=== PATIENT | male | born 1960 | race Caucasian/White ===

== ENCOUNTER 2016-10-11 09:12 | Inpatient (IN) ==
[2016-10-11] MEDS ORDERED: *HR* HYDROmorphone (PF) 1 MG/ML SYRINGE IVP ONE ×2 (09:39→11:42)
[2016-10-11] MEDS ORDERED: Ondansetron 4 MG/2 ML VIAL IVP ONE ×2 (09:39→11:42)
--- NOTE | 2016-10-11 10:03 | Emergency Department Note ---
Disposition Clinical Impression: Anemia Qualifiers: Anemia type: other cause Qualified Code(s): D64.89 - Disposition: Admitted As Inpatient Condition: Fair Time of Disposition: 13:40 Abdominal Pain HPI - General Chief Complaint: ED Abdominal Pain Stated Complaint: ABD pain Time Seen by Provider: 10/11/16 09:23 Source: patient - History of Present Illness HPI Narrative: Patient stumbled and pulled on his PEG tube one half weeks ago. It protruded about 3 cm but did not get removed. He states since then he has noticed some oozing around the insertion area whenever he strains to have a bowel movement. He states for the past 3 days the pain is gotten more significant knee has not been able to have bowel movement. He has tried Borrego milk glycerin suppositories in 2 months. Pain Scale: 8 - Related Data Home Medications Medication Instructions Recorded Confirmed Albuterol Sulfate [Albuterol 2 puff IH Q4HR PRN 05/11/15 10/11/16 Inhaler] Aspirin 81 mg PO DAILY 05/11/15 10/11/16 Atorvastatin Calcium [Lipitor] 20 mg PO HS 05/11/15 10/11/16 Carvedilol [Coreg] 25 mg PO BID 05/11/15 10/11/16 Insulin Glargine,Hum.rec.anlog 10 unit SQ HS 05/11/15 10/11/16 [Lantus Solostar] Insulin LISPRO [HumaLOG] 5 units SQ TIDWM PRN 12/04/15 10/11/16 Bumetanide 2 mg PO DAILY 09/14/16 10/11/16 Cholecalciferol (Vitamin D3) 1,000 unit PO DAILY 10/11/16 10/11/16 [Vitamin D] Docusate Sodium [Dok] 100 mg PO BID 10/11/16 10/11/16 LORazepam [Ativan] 1 mg PO TID PRN 10/11/16 10/11/16 Loratadine [Allergy Relief] 10 mg PO DAILY 10/11/16 10/11/16 Magnesium Hydroxide [Milk of 15 ml PO Q48H 10/11/16 10/11/16 Magnesia] Ondansetron HCl [Zofran] 4 mg PO Q6H 10/11/16 10/11/16 Oxycodone HCl 5 mg PO Q8H PRN 10/11/16 10/11/16 Spironolactone [Aldactone] 50 tab PO BID 10/11/16 10/11/16 Sucralfate [Carafate] 1 gm PO BID 10/11/16 10/11/16 Previous Rx's Medication Instructions Recorded Nicotine Patch [Nicoderm] 14 mg TD DAILY patch.td24 09/22/15 Prochlorperazine Maleate 1 tab PO Q6HR #90 tablet 09/17/16 [Compazine] Allergies Allergy/AdvReac Type Severity Reaction Status Date / Time Sulfa (Sulfonamide Allergy Hives Verified 10/11/16 14:04 Antibiotics) IVP DYE Allergy See Uncoded 10/11/16 14:04 Comments Review of Systems: Patient denies any fevers or chills. He denies any periods of syncope. He denies any blurry vision or headaches. He reports that he is slightly short of breath. He denies any chest pain. He reports abdominal pain worse on the left side. He reports a three-day history of constipation. He reports normal bowel movements up until then. He also reports increasing around his PEG tube whenever he strains to have a bowel movement. He denies any urinary symptoms. He reports that his legs are more edematous than normal. All systems ED: reviewed and negative except as stated. Abdominal Pain PMH - Past Medical History Medical history: Reports: atrial fibrillation, cancer, cardiomyopathy, CHF, COPD , diabetes, hyperlipidemia, hypertension, malignancy, renal disease Male Surgical History: Reports: other Psychiatric history: Reports: depression - Social History Smoking status: Current every day smoker Alcohol use: Reports: none Drug use: Reports: none Physical Exam - General Limitations: no limitations General appearance: alert, in no apparent distress - Head Head exam: atraumatic, normocephalic, normal inspection - Eye Eye exam: Present: normal appearance, PERRL, EOMI. Absent: scleral icterus - ENT ENT exam: normal exam, normal oropharynx, mucous membranes moist - Neck Neck exam: Present: normal inspection, full ROM, trachea midline. Absent: tenderness, meningismus, lymphadenopathy - Chest Chest inspection: Present: normal inspection, symmetric chest wall rise. Absent : tenderness, rash - Respiratory Respiratory exam: Present: normal lung sounds bilaterally. Absent: respiratory distress - Cardiovascular Cardiovascular exam: Present: regular rate, normal rhythm, normal heart sounds - Abdominal Exam Abdominal exam: Present: soft, tenderness (Left upper and lower quadrants on palpation.), guarding (Left upper quadrant), normal bowel sounds, other (PEG tube appears well-healed. There is mild erythema.). Absent: distention, rebound, rigidity - Extremities Exam Extremities exam: Present: normal inspection, full ROM, normal capillary refill , pedal edema (Pitting edema to knees.). Absent: tenderness - Back Exam Back exam: Present: normal inspection, full ROM. Absent: tenderness, CVA tenderness (R), CVA tenderness (L) - Neurological Exam Neurological exam: Present: alert, oriented X3. Absent: CN II-XII intact - Psychiatric Psychiatric exam: Present: normal affect, normal mood - Skin Skin exam: Present: warm, dry, intact, normal color. Absent: rash, cyanosis Course Course Narrative: Male patient with a history of esophageal cancer who is still undergoing chemotherapy for this presents with a half week history of left upper quadrant abdominal pain. He states the pain got significantly worse over the past 3 days. He is also complaining of constipation for the past 3 days. He states a week and a half ago he stumbled and pulled on his PEG tube. He states he noticed it came out approximately 3 cm. He states ever since then he has noticed infusing at the PEG tube site whenever he tries to bear down to have a bowel movement. Patient also complaining of nausea. He states this is constant due to his chemotherapy. He states this is not a new problem. He complains that his left upper quadrant pain feels like "a cut on her finger that is healing." His abdomen is soft however he does grimace whenever you palpate the left upper quadrant. Patient denies any fevers. He states he has tried glycerin suppositories to enemas and Borrego' milk to attempt to have a bowel movement. He is chronically on lactulose. Patient's lower extremities have pitting edema to his knees. He states he has been sitting up in his chair for the past 3 nights due to his abdominal pain. This is caused his legs to swell more than normal. We will get a CT if patient's abdomen and treat his pain while he is here. - Reevaluation(s) Reevaluation #1: Discussed patient's PEG tube with surgery. They state they will replace it for him. Time: 13:41 - Consultations Consultation #1: Spoke with Dr. Lynne. He states to place a consult and he will come see the patient to replace the PEG tube. Time: 13:34 Consultation #2: Spoke with Oncology. They are requesting the Pt be admitted for a blood transfusion. Time: 12:00 Vital Signs Temperature 98.6 F 10/11/16 09:17 Pulse Rate 89 10/11/16 09:17 Respiratory Rate 18 10/11/16 09:17 Blood Pressure 154/81 10/11/16 09:17 O2 Sat by Pulse Oximetry 97 10/11/16 09:17 Temperature 97.2 F L 10/12/16 07:27 Pulse Rate 75 10/12/16 07:27 Respiratory Rate 17 10/12/16 07:27 Blood Pressure 117/64 10/12/16 07:27 O2 Sat by Pulse Oximetry 98 10/12/16 07:27 Oxygen Delivery Oxygen Delivery Room Air Abdominal Pain - Medical Records Medical records reviewed: Yes I reviewed the patient's medical records. - Lab Data Lab results reviewed: Yes I reviewed the patient's lab results. Result diagrams: 10/12/16 03:50 10/12/16 03:50 Lab Results 10/11/16 10/11/16 10/11/16 Range/Units 10:05 10:05 10:05 WBC 6.2 (4.3-11.1) K/mcL RBC 2.11 L (4.19-5.50) M/mcL Hgb 6.2 L (12.9-16.9) g/dL Hct 19.9 L (37.5-50.1) % MCV 94.3 (83.0-100.0) fL MCH 29.4 (28.0-33.3) pg MCHC 31.2 L (31.6-35.5) g/dL RDW 19.4 H (11.5-14.5) % Plt Count 117 L (140-400) K/mcL MPV 10.7 (9.4-12.4) fL Immature Gran % 1.1 (0-4) % Seg Neutrophils % 85.3 % Lymphocytes % 3.2 % Monocytes % 10.4 % Eosinophils % 0.0 % Basophils % 0.0 % Neutrophils # 5.3 (1.6-8.9) K/mcL Lymphocytes # 0.2 L (0.6-4.6) K/mcL Monocytes # 0.7 (0.0-1.3) K/mcL Eosinophils # 0.0 (0.0-0.6) K/mcL Basophils # 0.0 (0.0-0.2) K/mcL Nucleated RBCs/100 WBC 0.5 H (0) /100 WBC Sodium 136 (136-145) mEq/L Potassium 5.0 H (3.5-4.5) mEq/L Chloride 107 (98-109) mEq/L Carbon Dioxide 17 L (19-29) mEq/L BUN 121 H (8-26) mg/dL Creatinine 4.83 H (0.72-1.25) mg/dL Est GFR ( Amer) 15 L (> 60) Est GFR (Non-Af Amer) 12 L (> 60) BUN/Creatinine Ratio 25 (6-26) Glucose 145 H (70-99) mg/dL Calculated Osmolality 323 H (280-300) Lactic Acid 2.1 (0.5-2.2) mmol/L Calcium 8.3 L (8.6-10.8) mg/dL Iron (65-175) mcg/dL % Saturation (20-55) % Transferrin (174-364) mg/dL Ferritin (22-275) ng/ml Total Bilirubin 1.2 (0.2-1.2) mg/dL Direct Bilirubin 0.6 H (0.0-0.5) mg/dL Indirect Bilirubin 0.6 (0.0-1.2) mg/dL AST 42 H (5-34) Units/L ALT 31 (0-55) Units/L Alkaline Phosphatase 281 H (38-126) Units/L Serum Total Protein 5.4 L (6.0-8.3) g/dL Albumin 2.4 L (3.5-5.0) g/dL Globulin 3.0 (2.4-3.5) g/dL Albumin/Globulin Ratio 0.8 L (1.1-2.2) Lipase 43 (8-78) Units/L 10/11/16 Range/Units 10:08 WBC (4.3-11.1) K/mcL RBC (4.19-5.50) M/mcL Hgb (12.9-16.9) g/dL Hct (37.5-50.1) % MCV (83.0-100.0) fL MCH (28.0-33.3) pg MCHC (31.6-35.5) g/dL RDW (11.5-14.5) % Plt Count (140-400) K/mcL MPV (9.4-12.4) fL Immature Gran % (0-4) % Seg Neutrophils % % Lymphocytes % % Monocytes % % Eosinophils % % Basophils % % Neutrophils # (1.6-8.9) K/mcL Lymphocytes # (0.6-4.6) K/mcL Monocytes # (0.0-1.3) K/mcL Eosinophils # (0.0-0.6) K/mcL Basophils # (0.0-0.2) K/mcL Nucleated RBCs/100 WBC (0) /100 WBC Sodium (136-145) mEq/L Potassium (3.5-4.5) mEq/L Chloride (98-109) mEq/L Carbon Dioxide (19-29) mEq/L BUN (8-26) mg/dL Creatinine (0.72-1.25) mg/dL Est GFR ( Amer) (> 60) Est GFR (Non-Af Amer) (> 60) BUN/Creatinine Ratio (6-26) Glucose (70-99) mg/dL Calculated Osmolality (280-300) Lactic Acid (0.5-2.2) mmol/L Calcium (8.6-10.8) mg/dL Iron 59 L (65-175) mcg/dL % Saturation 22 (20-55) % Transferrin 192 (174-364) mg/dL Ferritin 221 (22-275) ng/ml Total Bilirubin (0.2-1.2) mg/dL Direct Bilirubin (0.0-0.5) mg/dL Indirect Bilirubin (0.0-1.2) mg/dL AST (5-34) Units/L ALT (0-55) Units/L Alkaline Phosphatase (38-126) Units/L Serum Total Protein (6.0-8.3) g/dL Albumin (3.5-5.0) g/dL Globulin (2.4-3.5) g/dL Albumin/Globulin Ratio (1.1-2.2) Lipase (8-78) Units/L - Radiology Data Radiology results reviewed: Yes I reviewed the patient's radiology results. Attestation Statement - Attestation Attestation: I examined this patient and my medical decision-making was reviewed with the MEDICAL BILLING AND CODING SPECIALIST/PA/Advanced Practice Nurse/Resident Physician. I agree with the documented findings, disposition and treatment plan as described except to the extent set forth below. 13-year-old male presents ED because of abdominal pain functional constipation and generalized weakness and fatigue. Has history of esophageal cancer currently undergoing chemotherapy. He had recurrent issues of anemia and had transfusion 2 weeks ago. Yesterday he partially pulled out his PEG tube and has had pain in that location since that time. He is able to flush it okay but does have pain. He is also been constipated for the past several days but has increasing abdominal pain at the PEG site where he bears down bowel movement. Denies dysuria, hematuria or polyuria. Does complain of generalized fatigue. No chest pain or dyspnea. Morbid obese male in no apparent physiologic distress. He appears pale. Oropharynx is clear. Conjunctiva are pale. Chest clear to auscultation bilaterally. Rectal exam regular chest wall nontender. Abdomen with tenderness around the PEG tube site mild surrounding erythema. No palpable fluctuance. Bowel sounds are present throughout. Extremities warm and dry with bilateral trace edema. CT abdomen shows the balloon of the pigtail catheter to be in the abdominal wall musculature. Hemoglobin is 6.2. He is due to see his oncologist TODAY at 4:00PM and see if they can possibly do outpatient transfusion. We are going to replace PEG tube and confirm placement with Gastrografin; currently having difficulty getting the right size PEG tube. 12:15 Oncology has now opted to not do outpatient transfusion and reccomend admission 13:40 extract the existing PEG tube and were unable to get this out. Significant pain with the attempts. Dr. Lynne is consulted and will see the patient on the floor for changing of the PEG tube.
[2016-10-11 10:13] LABS: Hematocrit 19.9 % (37.5-50.1); Hemoglobin 6.2 g/dL (12.9-16.9); Immature Granulocytes % 1.1 % (0-4); Lymphocytes # 0.2 K/mcL (0.6-4.6); Lymphocytes % 3.2 %; Mean Corpuscular HGB Conc 31.2 g/dL (31.6-35.5); Mean Corpuscular Hemoglobin 29.4 pg (28.0-33.3); Mean Corpuscular Volume 94.3 fL (83.0-100.0); Mean Platelet Volume 10.7 fL (9.4-12.4); Monocytes # 0.7 K/mcL (0.0-1.3); Monocytes % 10.4 %; Neutrophils # 5.3 K/mcL (1.6-8.9); Nucleated Red Blood Cells 0.5 /100 WBC (0); Platelet Count 117 K/mcL (140-400); Red Blood Count 2.11 M/mcL (4.19-5.50); Red Cell Distribution Width 19.4 % (11.5-14.5); Segmented Neutrophils % 85.3 %
[2016-10-11 10:35] LABS: Albumin 2.4 g/dL (3.5-5.0); Albumin/Globulin Ratio 0.8 (1.1-2.2); Bilirubin,Direct 0.6 mg/dL (0.0-0.5); Bilirubin,Indirect 0.6 mg/dL (0.0-1.2); Bilirubin,Total 1.2 mg/dL (0.2-1.2); Calcium 8.3 mg/dL (8.6-10.8); Total Protein 5.4 g/dL (6.0-8.3)
[2016-10-11] MEDS ORDERED: Lidocaine Jelly 11 ml Syringe TP STA (12:47)
[2016-10-11] MEDS ORDERED: Lidocaine (Urojet) 5 ML JEL.PF.APP ONE (13:09)
[2016-10-11] MEDS ORDERED: Acetaminophen 325 MG TABLET PO PRN (14:33)
[2016-10-11] MEDS ORDERED: Naloxone 0.4 MG/ML INJ IVP PRN (14:33)
[2016-10-11] MEDS ORDERED: D5% in Water 1,000 ML IV PRN (14:55)
[2016-10-11] MEDS ORDERED: Dextrose Gel 15 GM PO PRN ×2 (14:55)
[2016-10-11] MEDS ORDERED: *HR* Dextrose 50 % in Water (Syg) 50 ML SYRINGE IVP PRN (14:55)
--- NOTE | 2016-10-11 15:04 | General Surgery Consult Note ---
Date of Encounter: 10/11/16 Time of Encounter: 14:25 Assessment and Plan (1) PEG (percutaneous endoscopic gastrostomy) status Current Visit: No Status: Acute The PEG tube was dislodged and in the subcutaneous tissue. I removed the PEG tube. The resulting wound will need to be packed once a day with iodoform. History of Present Illness Consult date: 10/11/16 Reason for consult: other (Abnormal CAT scan, dislodged gastrostomy) History of present illness: The patient fell several days ago and developed abdominal pain in the area of his percutaneous endoscopic gastrostomy tube. This was originally placed for treatment of esophageal cancer. He has not used to prevent nutrition for some time. The CAT scan of the abdomen was obtained. It was noted that the tip of the PEG tube was now in the skin. This did not appear to be gastric lumen. I personally reviewed CAT scan and agree with this finding. There also appeared to be inflammatory changes around the PEG tube in the subcutaneous tissue. I discussed these findings with the patient and recommended immediate removal of the PEG tube. I removed the PEG tube at the bedside. The remaining wound is packed with iodoform. Past Med Surg Social Fam HX - Past Medical History Medical history: atrial fibrillation, cancer, cardiomyopathy, CHF, COPD, diabetes, hyperlipidemia, hypertension, malignancy, renal disease Psychiatric history: depression - Past Surgical History Surgical History: orthopedic, other, other - Social History Smoking Status: Current every day smoker Smokeless Tobacco Status: No Alcohol use: none Drug use: none - Family History Father Adopted: No Living Status: Still Living Hx Family Cardiac Disorders: Yes Hx Family Respiratory Disorders: No Hx Family Cancer: Yes (Prostate) Hx Family GI Disorders: No Hx Family Endocrine Disorder: No Hx Family Neuromuscular Disorders: No Hx Family Neurologic Disorders: No Hx Family HEENT Disorders: No Hx Family Autoimmune Disorders: No Mother Adopted: No Family Member Ethnicity: Non- Living Status: Still Living Hx Family Cardiac Disorders: Yes (chf) Hx Family Respiratory Disorders: Yes (copd) Hx Family GI Disorders: Yes (IBS) Hx Family Endocrine Disorder: Yes Hx Family Neuromuscular Disorders: No Hx Family Neurologic Disorders: No Hx Family HEENT Disorders: No Hx Family Autoimmune Disorders: No Brother Hx Family Cardiac Disorders: Yes ([place] at age 49) Medications and Allergies Albuterol Sulfate [Albuterol Inhaler] 2 puff IH Q4HR PRN 05/11/15 [History] Aspirin 81 mg PO DAILY 05/11/15 [History] Atorvastatin Calcium [Lipitor] 20 mg PO HS 05/11/15 [History] Carvedilol [Coreg] 25 mg PO BID 05/11/15 [History] Insulin Glargine,Hum.rec.anlog [Lantus Solostar] 10 unit SQ HS 05/11/15 [History ] Nicotine Patch [Nicoderm] 14 mg TD DAILY patch.td24 09/22/15 [Rx] Insulin LISPRO [HumaLOG] 5 units SQ TIDWM PRN 12/04/15 [History] Bumetanide 2 mg PO DAILY 09/14/16 [History] Prochlorperazine Maleate [Compazine] 1 tab PO Q6HR #90 tablet 09/17/16 [Rx] Cholecalciferol (Vitamin D3) [Vitamin D] 1,000 unit PO DAILY 10/11/16 [History] Docusate Sodium [Dok] 100 mg PO BID 10/11/16 [History] LORazepam [Ativan] 1 mg PO TID PRN 10/11/16 [History] Loratadine [Allergy Relief] 10 mg PO DAILY 10/11/16 [History] Magnesium Hydroxide [Milk of Magnesia] 15 ml PO Q48H 10/11/16 [History] Ondansetron HCl [Zofran] 4 mg PO Q6H 10/11/16 [History] Oxycodone HCl 5 mg PO Q8H PRN 10/11/16 [History] Spironolactone [Aldactone] 50 tab PO BID 10/11/16 [History] Sucralfate [Carafate] 1 gm PO BID 10/11/16 [History] Allergies Sulfa (Sulfonamide Antibiotics) Allergy (Verified 10/11/16 14:04) Hives IVP DYE Allergy (Uncoded 10/11/16 14:04) See Comments Review of Systems All systems PM: reviewed and no additional remarkable complaints except as stated All systems PM: A 10-system review of systems was performed and is negative for pertinent findings except as documented above in the HPI. General Surgery Exam Initial Vital Signs Temp Pulse Resp BP Pulse Ox 98.6 F 89 18 154/81 97 10/11/16 09:17 10/11/16 09:17 10/11/16 09:17 10/11/16 09:17 10/11/16 09:17 - General physical appearance well developed, well nourished, no distress - Eyes PERRL, normal ocular movement - ENT normal pinna, normal nares, normal mucosa, no hearing loss, no congestion - Respiratory normal expansion, normal respiratory effort, clear to percussion, clear to auscultation - Cardiovascular Cardiovascular exam: Present: RRR, 15, 16 - Abdomen Abdomen general surgery: Present: soft (The PEG tube site has formed an abscess. This will need to be packed with iodoform.) - Neurologic Present: CN 2-12 grossly intact, normal coordination, normal sensation - Psychiatric Psychiatric general surgery: Present: appropriate, oriented to person, oriented to place, oriented to time, speech is normal, memory intact Exam Initial Vital Signs Temp Pulse Resp BP Pulse Ox 98.6 F 89 18 154/81 97 10/11/16 09:17 10/11/16 09:17 10/11/16 09:17 10/11/16 09:17 10/11/16 09:17 Results - Labs 10/11/16 10:05 10/11/16 10:05 Abnormal lab results RBC 2.11 M/mcL (4.19-5.50) L 10/11/16 10:05 Hgb 6.2 g/dL (12.9-16.9) L 10/11/16 10:05 Hct 19.9 % (37.5-50.1) L 10/11/16 10:05 MCHC 31.2 g/dL (31.6-35.5) L 10/11/16 10:05 RDW 19.4 % (11.5-14.5) H 10/11/16 10:05 Plt Count 117 K/mcL (140-400) L 10/11/16 10:05 Lymphocytes # 0.2 K/mcL (0.6-4.6) L 10/11/16 10:05 Nucleated RBCs/100 WBC 0.5 /100 WBC (0) H 10/11/16 10:05 Potassium 5.0 mEq/L (3.5-4.5) H 10/11/16 10:05 Carbon Dioxide 17 mEq/L (19-29) L 10/11/16 10:05 BUN 121 mg/dL (8-26) H 10/11/16 10:05 Creatinine 4.83 mg/dL (0.72-1.25) H 10/11/16 10:05 Est GFR ( Amer) 15 (> 60) L 10/11/16 10:05 Est GFR (Non-Af Amer) 12 (> 60) L 10/11/16 10:05 Glucose 145 mg/dL (70-99) H 10/11/16 10:05 Calculated Osmolality 323 (280-300) H 10/11/16 10:05 Calcium 8.3 mg/dL (8.6-10.8) L 10/11/16 10:05 Direct Bilirubin 0.6 mg/dL (0.0-0.5) H 10/11/16 10:05 AST 42 Units/L (5-34) H 10/11/16 10:05 Alkaline Phosphatase 281 Units/L (38-126) H 10/11/16 10:05 Serum Total Protein 5.4 g/dL (6.0-8.3) L 10/11/16 10:05 Albumin 2.4 g/dL (3.5-5.0) L 10/11/16 10:05 Albumin/Globulin Ratio 0.8 (1.1-2.2) L 10/11/16 10:05 All other labs normal. Consult Discharge Plan - Plan Referrals: Jeffy Guerra MD [Primary Care Provider] -
--- NOTE | 2016-10-11 15:45 | Internal Med History&Physical ---
Date of Encounter: 10/11/16 Time of Encounter: 15:00 Assessment and Plan (1) Acute on chronic kidney failure Current visit: No Status: Acute 1 patient has had increase in creatinine which is presently 4.83 which is up from 4.31. Appears his baseline between 2 and 3. We will continue to monitor creatinine 2 we will consult nephrology 3 avoid nephrotoxins-no NSAIDs 4 maintain MAP greater than 60 5 monitor intake and output 6 daily weights (2) Anemia Current visit: Yes Status: Chronic 1 this is chronic-present hemoglobin is 6.2 -patient with chemotherapy as CK D stage IV. Patient has been typed and crossed for 2 units of PRBCs 2 Will recheck H&H after transfusion 3 we will consult oncology concerning anemia (3) Atrial fibrillation Current visit: No Status: Chronic 1 presently in sinus rhythm he had cardioversion in 2013. We will continue with aspirin at this time patient was on Eliquis however was discontinued due to bleeding Qualifiers: Atrial fibrillation type: paroxysmal Qualified Code(s): I48.0 - Paroxysmal atrial fibrillation (4) CHF (congestive heart failure) Current visit: No Status: Chronic 1 exacerbation at this time. Last echo in 2014 recorded EF of 55 with severe diastolic dysfunction. We will continue with Coreg as well as spironolactone 2 we will monitor intake and output 3 daily weights 4 low-sodium diet Qualifiers: Congestive heart failure type: diastolic Congestive heart failure chronicity: chronic Qualified Code(s): I50.32 - Chronic diastolic (congestive ) heart failure (5) Diabetes mellitus Current visit: No Status: Chronic 1 last A1c in April was 6.1 we will continue with Accu-Cheks before meals and at bedtime. Continue with basal as well as prandial and corrective insulin goal to maintain postprandial less than 180 Qualifiers: Diabetes mellitus type: type 2 Diabetes mellitus complication status: with kidney complications Diabetes mellitus complication detail: with chronic kidney disease Diabetes mellitus watermelon inspector insulin use: with watermelon inspector use Chronic kidney disease stage: stage 4 (severe) Qualified Code(s): E11.22 - Type 2 diabetes mellitus with diabetic chronic kidney disease; N18.4 - Chronic kidney disease, stage 4 (severe); Z79.4 - nursing home (current) use of insulin Internal Medicine - H&P: HPI Chief complaint: Abd pain constipation Admitted From: Long-term Nursing Facility Plans for Post Hospital Care: Transfer Nursing Home Facility History of present illness: Mr. Carranza is a 56 year old male patient has extensive medical history which includes esophageal cancer PEG tube placement atrial fibrillation COPD on 2 L nasal cannula diabetes hypertension hyperlipidemia CHF JOSÉ MIGUEL is a cannula current smoker. According to the patient approximately a week ago he was attempting to get out of his chair when he accidentally pulled his PEG tube. Since then he has been experiencing some abdominal pain as well as constipation. The PEG tube is not used for tube feeding and he flushes it 4 times a day with water he still consumes food orally. He denies any fevers chills, chest pain however he does have some nausea and vomiting and poor appetite which mostly occur after chemotherapy, which his last treatment was yesterday. According to the patient he has required blood transfusions after chemotherapy with his most recent transfusion occurring approximately 2 weeks ago. He has been complaining of increased fatigue and general malaise and shortness of breath upon exertion requiring oxygen use. He presented to the ER with complaints of abdominal pain and constipation. Upon evaluation this to the patient's hemoglobin was 6.6 per ER records oncology was notified and requested patient be admitted for PRBC transfusion. He denies any melena, hematochezia hemataemesis. While in the ER an attemp was made to change the patient's PEG tube however this was not successful due to patient inability to to remove the tube as well as patient's inability to tolerate pain. Surgery was consulted for PEG tube replacement. Patient has been admitted for further workup and evaluation. At present time patient denies any pain, however continues to complain of constipation. Upon assessment is noted the skin surrounding PEG tube is red and excoriated. There is brown thin liquid draining from PEG tube. At present time patient appears to be hemodynamically stable. He will be typed and crossed for 2 units of PRBCs and transfused. He will be admitted for observation during transfusion. I reviewed case with Dr. Clemente who agrees with plan Past Med Surg Social Fam HX - Past Medical History Medical history: atrial fibrillation, cancer, cardiomyopathy, CHF, COPD, diabetes, hyperlipidemia, hypertension, malignancy, renal disease Psychiatric history: depression - Past Surgical History Surgical History: orthopedic, other, other - Social History Smoking Status: Current every day smoker Smokeless Tobacco Status: No Alcohol use: none Drug use: none - Family History Father Adopted: No Living Status: Still Living Hx Family Cardiac Disorders: Yes Hx Family Respiratory Disorders: No Hx Family Cancer: Yes (Prostate) Hx Family GI Disorders: No Hx Family Endocrine Disorder: No Hx Family Neuromuscular Disorders: No Hx Family Neurologic Disorders: No Hx Family HEENT Disorders: No Hx Family Autoimmune Disorders: No Mother Adopted: No Family Member Ethnicity: Non- Living Status: Still Living Hx Family Cardiac Disorders: Yes (chf) Hx Family Respiratory Disorders: Yes (copd) Hx Family GI Disorders: Yes (IBS) Hx Family Endocrine Disorder: Yes Hx Family Neuromuscular Disorders: No Hx Family Neurologic Disorders: No Hx Family HEENT Disorders: No Hx Family Autoimmune Disorders: No Brother Hx Family Cardiac Disorders: Yes ([place] at age 49) Internal Medicine - H&P: Meds Albuterol Sulfate [Albuterol Inhaler] 2 puff IH Q4HR PRN 05/11/15 [History] Aspirin 81 mg PO DAILY 05/11/15 [History] Atorvastatin Calcium [Lipitor] 20 mg PO HS 05/11/15 [History] Carvedilol [Coreg] 25 mg PO BID 05/11/15 [History] Insulin Glargine,Hum.rec.anlog [Lantus Solostar] 10 unit SQ HS 05/11/15 [History ] Nicotine Patch [Nicoderm] 14 mg TD DAILY patch.td24 09/22/15 [Rx] Insulin LISPRO [HumaLOG] 5 units SQ TIDWM PRN 12/04/15 [History] Bumetanide 2 mg PO DAILY 09/14/16 [History] Prochlorperazine Maleate [Compazine] 1 tab PO Q6HR #90 tablet 09/17/16 [Rx] Cholecalciferol (Vitamin D3) [Vitamin D] 1,000 unit PO DAILY 10/11/16 [History] Docusate Sodium [Dok] 100 mg PO BID 10/11/16 [History] LORazepam [Ativan] 1 mg PO TID PRN 10/11/16 [History] Loratadine [Allergy Relief] 10 mg PO DAILY 10/11/16 [History] Magnesium Hydroxide [Milk of Magnesia] 15 ml PO Q48H 10/11/16 [History] Ondansetron HCl [Zofran] 4 mg PO Q6H 10/11/16 [History] Oxycodone HCl 5 mg PO Q8H PRN 10/11/16 [History] Spironolactone [Aldactone] 50 tab PO BID 10/11/16 [History] Sucralfate [Carafate] 1 gm PO BID 10/11/16 [History] Allergies Sulfa (Sulfonamide Antibiotics) Allergy (Verified 10/11/16 14:04) Hives IVP DYE Allergy (Uncoded 10/11/16 14:04) See Comments All Systems PM: A 10-system review of systems was performed and is negative for pertinent findings except as documented above in the HPI. - Constitutional Constitutional: anorexia, fatigue, malaise - Cardiovascular Cardiovascular ROS IM: dyspnea on exertion, edema - Respiratory Respiratory: cough, dyspnea on exertion - Gastrointestinal Gastrointestinal: abdominal pain, nausea, vomiting - Integumentary Integumentary IM: erythema, skin ulcer Additional comments: Around PEG tube insertion site - Constitutional Vitals: Temp Pulse Resp BP Pulse Ox 98.6 F 79 16 148/78 99 10/11/16 09:17 10/11/16 10:42 10/11/16 13:54 10/11/16 13:54 10/11/16 10:42 General appearance: Present: A&O X 3, morbidly obese - Head Head exam: Present: atraumatic, normocephalic - Respiratory Respiratory exam: Present: rhonchi. Absent: accessory muscle use, rales, wheezes Additional comments: Scattered rhonchi - Cardiovascular Cardiovascular exam: Present: RRR, +S1, +S2. Absent: diastolic murmur, gallop, rubs, systolic murmur - GI/Abdominal GI/Abdominal exam: Present: normal bowel sounds, soft, no peritoneal signs. Absent: distended, tenderness - Extremities Exam Extremities exam: Present: pedal edema, warm, radial pulses palpable and symetrical. Absent: calf tenderness, cyanotic Additional comments: +2 pitting edema to lower extremities bilaterally - Neurological Exam Neurological exam: Present: CN II-XII intact, oriented X3, no focal deficits. Absent: pronater drift, facial droop, speech deficit - Skin Skin exam: Present: dry, erythema, excoriation, intact Additional comments: Excoriation and erythema around PEG tube insertion site Internal Med - H&P Results - Labs CBC & Chem 7: 10/11/16 10:05 01/12/17 10:05 - Diagnostic Studies CT scan - abdomen Additional comments: Per radiology reading 1 percutaneous gastrotomy tube appears to have retracted with the bleeding in the anterior abdominal wall. There is no pneumo peritoneum 2 pulmonary and hepatic metastatic disease 3 free intraperitoneal fluid small left pleural effusion 4 cholelithiasis 5 mild splenic enlargement 6 possible rectal stool impaction
[2016-10-11] MEDS ORDERED: 0.9 % Sodium Chloride Mini Bag 100 ML ONE (16:38)
[2016-10-11] MEDS ORDERED: Albuterol 2.5 MG/3 ML NEBULIZER IH PRN (16:44)
[2016-10-11] MEDS: Insulin LISPRO 300 UNITS/3 ML VIAL SQ SCH ×3 (17:33→20:23)
[2016-10-11 18:32] LABS: Bilirubin,Urine Negative (Negative); Blood,Urine Negative (Negative); Clarity,Urine Clear (Clear); Color,Urine Yellow (Yellow); Glucose,Urine (UA) Normal (Normal); Ketones,Urine Negative (Negative); Leukocyte Esterase,Urine Negative (Negative); Nitrite,Urine Negative (Negative); PH,Urine 5.5 pH Units (5.0-8.0); Protein,Urine 100 mg/dL (Neg-Trace); Specific Gravity,Urine 1.012 (1.010-1.025); Urobilinogen,Urine Normal (Normal)
[2016-10-11 18:34] LABS: Bacteria,Urine None Seen per hpf (None-Few); Hyaline Casts,Urine None Seen per lpf (None-Few); Squamous Epithelial Cell,Urine Few per lpf (None-Few); WBC,Urine 0-3 per hpf (0-3)
[2016-10-11] MEDS: Nicotine 14 MG PATCH.TD24 TD SCH (18:45)
[2016-10-11] MEDS: Sucralfate 1 GM TABLET PO SCH (20:35)
[2016-10-11] MEDS: Insulin DETEMIR 100 UNIT/ML X5UNITS SQ SCH (20:35)
--- NOTE | 2016-10-11 21:35 | Nephrology Consult Note ---
Date of Encounter: 10/11/16 Time of Encounter: 15:37 Assessment and Plan (1) Anemia Current Visit: Yes Status: Acute Check iron stores, vitamin b12 and folate. Evaluate for bleeding. May need CYRUS. Transfuse as needed. Qualifiers: Anemia type: other cause Qualified Code(s): D64.89 - Other specified anemias (2) Infection of PEG site Current Visit: No Status: Acute Per primary team and surgery. Antibiotics as needed. (3) Acute on chronic kidney failure Current Visit: No Status: Acute Mild elevation of creatinine above baseline. DRU/CKD vs progression of CKD. Patient also with volume overload as evidenced by significant edema. Avoid nephrotoxins and adjust medications for renal function. Follow creatinine level. (4) Hyperkalemia Current Visit: Yes Status: Acute Medical management. History of Present Illness - Reason for Consult Consult date: 10/11/16 Acute Kidney Injury, Chronic Kidney Disease - Chief Complaint DRU on CKD - History of Present Illness Mr. Carranza presents after his PEG tube was partially pulled out and with the complaint of constipation. He denied other complaints including chest pain, shortness of breath. He reports he is followed by Dr. Carney on an outpatient basis. He denies loss of appetite or other problem. Past Med Surg Social Fam HX - Past Medical History Medical history: atrial fibrillation, cancer, cardiomyopathy, CHF, COPD, diabetes, hyperlipidemia, hypertension, malignancy, renal disease Psychiatric history: depression - Past Surgical History Surgical History: orthopedic, other, other - Social History Smoking Status: Current every day smoker Smokeless Tobacco Status: No Alcohol use: none Drug use: none - Family History Father Adopted: No Living Status: Still Living Hx Family Cardiac Disorders: Yes Hx Family Respiratory Disorders: No Hx Family Cancer: Yes (Prostate) Hx Family GI Disorders: No Hx Family Endocrine Disorder: No Hx Family Neuromuscular Disorders: No Hx Family Neurologic Disorders: No Hx Family HEENT Disorders: No Hx Family Autoimmune Disorders: No Mother Adopted: No Family Member Ethnicity: Non- Living Status: Still Living Hx Family Cardiac Disorders: Yes (chf) Hx Family Respiratory Disorders: Yes (copd) Hx Family GI Disorders: Yes (IBS) Hx Family Endocrine Disorder: Yes Hx Family Neuromuscular Disorders: No Hx Family Neurologic Disorders: No Hx Family HEENT Disorders: No Hx Family Autoimmune Disorders: No Brother Hx Family Cardiac Disorders: Yes ([place] at age 49) Medications and Allergies Albuterol Sulfate [Albuterol Inhaler] 2 puff IH Q4HR PRN 05/11/15 [History] Aspirin 81 mg PO DAILY 05/11/15 [History] Atorvastatin Calcium [Lipitor] 20 mg PO HS 05/11/15 [History] Carvedilol [Coreg] 25 mg PO BID 05/11/15 [History] Insulin Glargine,Hum.rec.anlog [Lantus Solostar] 10 unit SQ HS 05/11/15 [History ] Nicotine Patch [Nicoderm] 14 mg TD DAILY patch.td24 09/22/15 [Rx] Insulin LISPRO [HumaLOG] 5 units SQ TIDWM PRN 12/04/15 [History] Bumetanide 2 mg PO DAILY 09/14/16 [History] Prochlorperazine Maleate [Compazine] 1 tab PO Q6HR #90 tablet 09/17/16 [Rx] Cholecalciferol (Vitamin D3) [Vitamin D] 1,000 unit PO DAILY 10/11/16 [History] Docusate Sodium [Dok] 100 mg PO BID 10/11/16 [History] LORazepam [Ativan] 1 mg PO TID PRN 10/11/16 [History] Loratadine [Allergy Relief] 10 mg PO DAILY 10/11/16 [History] Magnesium Hydroxide [Milk of Magnesia] 15 ml PO Q48H 10/11/16 [History] Ondansetron HCl [Zofran] 4 mg PO Q6H 10/11/16 [History] Oxycodone HCl 5 mg PO Q8H PRN 10/11/16 [History] Spironolactone [Aldactone] 50 tab PO BID 10/11/16 [History] Sucralfate [Carafate] 1 gm PO BID 10/11/16 [History] Allergies Sulfa (Sulfonamide Antibiotics) Allergy (Verified 10/11/16 14:04) Hives IVP DYE Allergy (Uncoded 10/11/16 14:04) See Comments Review of Systems All Systems: reviewed and no additional remarkable complaints except as stated ( as per the HPI.) Exam - Vital Signs Vital signs: Initial Vital Signs Temp Pulse Resp BP Pulse Ox 98.6 F 89 18 154/81 97 10/11/16 09:17 10/11/16 09:17 10/11/16 09:17 10/11/16 09:17 10/11/16 09:17 Vital Signs - Last 8 Hours Temp Pulse Resp BP Pulse Ox 10/11/16 21:01 97.6 F 68 16 119/75 98 10/11/16 20:35 97.3 F L 80 16 131/79 99 10/11/16 19:39 98 10/11/16 19:38 97.5 F L 80 14 108/68 97 10/11/16 19:01 97.8 F 73 16 113/75 98 10/11/16 17:17 97.7 F 67 16 109/70 97 10/11/16 16:40 97.9 F 74 16 105/65 97 10/11/16 15:35 97.4 F L 81 17 147/81 99 10/11/16 13:54 16 148/78 Intake and Output 10/11/16 10/11/16 10/11/16 07:59 15:59 23:59 Intake Total 590 / 590 Balance 590 / 590 Intake: Oral 240 / 240 Blood Product 350 / 350 Rbcs Leuko Poor As-1 350 / 350 Unit [id number] Rbcs Leuko Poor As-1 0 / 0 Unit [id number] Other: Meal Dinner Percent of Meal Consumed 75% Weight 131.088 kg Blood Glucose* 183 Patient Weight 10/11/16 23:59 Weight 131.088 kg - General Appearance General appearance: well-developed, well-nourished, obese EENT: ATNC Neck: supple Respiratory: clear Cardiology: edema, regular rate, regular rhythm Gastrointestinal: normoactive bowel sounds Integumentary: warm and dry Neurologic: alert and oriented x3 Musculoskeletal: no cyanosis Psychiatric: mood/affect appropriate Results - Lab Results 10/11/16 10:05 10/11/16 10:05 Most recent lab results Calcium 8.3 mg/dL (8.6-10.8) L 10/11/16 10:05 Consult Discharge Plan - Plan Referrals: Jeffy Guerra MD [Primary Care Provider] -
[2016-10-11 22:13] LABS: % Iron Saturation 22 % (20-55); Iron 59 mcg/dL (65-175); Transferrin 192 mg/dL (174-364)
[2016-10-11 22:33] LABS: Ferritin 221 ng/ml (22-275)
[2016-10-12] MEDS: *HR* OxyCODONE Immed Rel 5 MG TABLET PO PRN (03:58)
[2016-10-12 04:35] LABS: Immature Granulocytes % 1.2 % (0-4)
[2016-10-12 04:38] LABS: Hematocrit 21.6 % (37.5-50.1); Hemoglobin 6.8 g/dL (12.9-16.9); Immature Platelets 2.7 % (1.1-6.1); Lymphocytes # 0.3 K/mcL (0.6-4.6); Lymphocytes % 5.5 %; Mean Corpuscular HGB Conc 31.5 g/dL (31.6-35.5); Mean Corpuscular Hemoglobin 28.7 pg (28.0-33.3); Mean Corpuscular Volume 91.1 fL (83.0-100.0); Mean Platelet Volume 11.4 fL (9.4-12.4); Monocytes # 0.4 K/mcL (0.0-1.3); Monocytes % 7.3 %; Platelet Count 100 K/mcL (140-400); Red Blood Count 2.37 M/mcL (4.19-5.50); Red Cell Distribution Width 19.2 % (11.5-14.5)
[2016-10-12 05:01] LABS: Calcium 8.1 mg/dL (8.6-10.8); Potassium 4.8 mEq/L (3.5-4.5)
[2016-10-12 05:15] LABS: Neutrophils # 4.2 K/mcL (1.6-8.9)
[2016-10-12 05:28] LABS: Folate 8.2 ng/mL (7.0-31.4)
--- NOTE | 2016-10-12 08:04 | Oncology Inp Consult Note ---
Date of Encounter: 10/12/16 Time of Encounter: 17:15 Assessment and Plan (1) Esophageal adenocarcinoma Status: Chronic Assessment and plan: The patient was admitted for multifactorial anemia of chronic illness and chemotherapy side effect, and CKD. He will receive PRBCs and be seen by [facility] connector, Bernard Carney tomorrow. Surgery also consulted. His G tube was removed in emergency room. He was treated for infection of the tube the last several weeks. The patient has adequate oral intake. Plan is to follow our patient during stay. We need to monitor labs, oral intake , and help with symptom management (2) Anemia in chronic illness Status: Acute (3) Anemia in chronic kidney disease Status: Acute - Data of Consult Requesting Physician: Azeem Brown MD Primary Care Provider: Jeffy Guerra, - Consult Narrative Reason for consult: Anemia of CKD/GE junction cancer History of present illness: Mr. Carranza is a 56 year old male hospitalized with a severe anemia hemoglobin 6.2 on 09/09/2015. Scopes showed a tubular adenomas in the colon which were excised. Chronic gastritis in 3 cm ulcerated mass in the GE junction showed a well differentiated and invasive adenocarcinoma with high-grade dysplasia. CT of the abdomen and pelvis without contrast 09/15/2015 Road third spacing of fluid with bilateral pleural effusion ascites and anasarca. Chronic liver disease with portal venous hypertension as considerations. Laparoscopy J-tube placed at [facility], and 2 liver nodules were biopsied. Both showed metastatic carcinoma on 10/14/2015. Duodenal biopsies mild chronic duodinitis and gastric antrum showed biopsy showed adenocarcinoma Patinet treated with Carboplatin AUC of 2 and Taxol 70 mg/m2 weekly for 3 weeks and one week off, started first cycle on 10/26/15 at [place]. Subsequently hospitalized with the bleeding from the esophageal cancer confirmed by EGD. Evaluated by Dr. Satihs Wynne, radiation oncologist at [facility]. Completed 3000 cGy palliative radiation over 10 fractions. Treatment dates from 12/13/2015 to 12/26/2015. He is able to eat better now and no GI bleeding He did have grade 2-3 thrombocytopenia from the treatment He then received standard FOLFOX without oxaliplatin 65 mg/m (dose adjusted for low creatinine clearance) in home 5-FU infusion 2400 mg over 46 hours ( instead of Xeloda because of renal insufficiency. Cycle 1 on 01/18/2016 omitted 5-FU bolus. Completed 3 cycles on 02/15/2016 CT chest w/o contrast on 02/23/16 shows persistent mild wall thickening of the distal esophagus. stable mediastinal lymphadenopathy CT abd/pel w/o contrast on 02/23/16 shows esophageal mass is not evident. multiple hepatic hyopdensities suspicious for metastases,new since 09/15/15 Then, he received Iirinotecan 150 mg/m IV every 2 weeks. No renal adjustment necessary Continue 5-FU home infusion same dose 2400 mg over 46 hours. Cycle 1on 02/29/2016 High-risk medication dose adjustment from cycle 3 on 03/28/2016. CT chest w/o contrast on 04/12/16 interval worsening of metastatic disease as evidenced by enlarging hepatic masses. evaluation of new small masses is limited given the lack of IV contrast He was evaluated by Dr. Farooq at [facility] on 04/18/2016. The recommendation is to consider Taxol, Ramucirumab start with day 1 and 15. Changed to Taxol day 1 and 8 and 15 as done through [facility] trial if he tolerates it. Dose reduced Taxol 60 mg/m SC had grade 3 thrombocytopenia before and Ramucirumab standard 8 mg per KG today 1 and 15 of [address] chest w/o con on 08/22/16 new noncalcified pulmonary nodules in the right upper lobe . This is more rounded and could be atelectasis. One was about 6 mm and the adjoining one was [address] abdomen the same day showed multiple liver lesions no major change. At this time we decided to continue Taxol, ramucrumab regimen. Patient last treatment was 10/10/16 at [facility]. The patient has required multiple blood transfusions throughout last several weeks, as he has a history of nephrotic syndrome as well as anemia of chronic chemotherapy treatments. He follows Dr Bernard Carney. Patient went to [facility] emergency department on 10/11/16 for abdominal pain. He was found to have misplaced G Tube, and it was removed and not replaced per Dr. Lynne because he is eating well. He was found to have Hgb 6.2, and creatinine 4.2. He was admitted for transusions, chemotherapy symptom management, and renal management Past Med Surg Social Fam HX - Past Medical History Medical history: atrial fibrillation, cancer, cardiomyopathy, CHF, COPD, diabetes, hyperlipidemia, hypertension, malignancy, renal disease Psychiatric history: depression - Past Surgical History Surgical History: orthopedic, other, other - Social History Smoking Status: Current every day smoker Smokeless Tobacco Status: No Alcohol use: none Drug use: none - Family History Father Adopted: No Living Status: Still Living Hx Family Cardiac Disorders: Yes Hx Family Respiratory Disorders: No Hx Family Cancer: Yes (Prostate) Hx Family GI Disorders: No Hx Family Endocrine Disorder: No Hx Family Neuromuscular Disorders: No Hx Family Neurologic Disorders: No Hx Family HEENT Disorders: No Hx Family Autoimmune Disorders: No Mother Adopted: No Family Member Ethnicity: Non- Living Status: Still Living Hx Family Cardiac Disorders: Yes (chf) Hx Family Respiratory Disorders: Yes (copd) Hx Family GI Disorders: Yes (IBS) Hx Family Endocrine Disorder: Yes Hx Family Neuromuscular Disorders: No Hx Family Neurologic Disorders: No Hx Family HEENT Disorders: No Hx Family Autoimmune Disorders: No Brother Hx Family Cardiac Disorders: Yes ([place] at age 49) Medications and Allergies Albuterol Sulfate [Albuterol Inhaler] 2 puff IH Q4HR PRN 05/11/15 [History] Aspirin 81 mg PO DAILY 05/11/15 [History] Atorvastatin Calcium [Lipitor] 20 mg PO HS 05/11/15 [History] Carvedilol [Coreg] 25 mg PO BID 05/11/15 [History] Insulin Glargine,Hum.rec.anlog [Lantus Solostar] 10 unit SQ HS 05/11/15 [History ] Nicotine Patch [Nicoderm] 14 mg TD DAILY patch.td24 09/22/15 [Rx] Insulin LISPRO [HumaLOG] 5 units SQ TIDWM PRN 12/04/15 [History] Bumetanide 2 mg PO DAILY 09/14/16 [History] Prochlorperazine Maleate [Compazine] 1 tab PO Q6HR #90 tablet 09/17/16 [Rx] Cholecalciferol (Vitamin D3) [Vitamin D] 1,000 unit PO DAILY 10/11/16 [History] Docusate Sodium [Dok] 100 mg PO BID 10/11/16 [History] LORazepam [Ativan] 1 mg PO TID PRN 10/11/16 [History] Loratadine [Allergy Relief] 10 mg PO DAILY 10/11/16 [History] Magnesium Hydroxide [Milk of Magnesia] 15 ml PO Q48H 10/11/16 [History] Ondansetron HCl [Zofran] 4 mg PO Q6H 10/11/16 [History] Oxycodone HCl 5 mg PO Q8H PRN 10/11/16 [History] Spironolactone [Aldactone] 50 tab PO BID 10/11/16 [History] Sucralfate [Carafate] 1 gm PO BID 10/11/16 [History] Allergies Sulfa (Sulfonamide Antibiotics) Allergy (Verified 10/11/16 14:04) Hives IVP DYE Allergy (Uncoded 10/11/16 14:04) See Comments All systems: reviewed and no additional remarkable complaints except as stated Constitutional: Present: fatigue Gastrointestinal: Present: abdominal pain (from removed J tube) Oncology - Exam - Constitutional Vitals: Temp Pulse Resp BP Pulse Ox 97.2 F L 75 17 117/64 98 10/12/16 07:27 10/12/16 07:27 10/12/16 07:27 10/12/16 07:27 10/12/16 07:27 General appearance: no acute distress - Head Head exam: Present: atraumatic, normal inspection - ENT ENT exam: Present: mucous membranes moist - Respiratory Respiratory exam: Present: CTAB - Cardiovascular Cardiovascular exam: Present: RRR, +S1, +S2 - GI/Abdominal GI/Abdominal exam: Present: distended, soft, tenderness - Extremities Exam Extremities exam: Present: full ROM, normal inspection - Neurological Exam Neurological exam: Present: alert, CN II-XII intact, oriented X3 - Psychiatric Psychiatric exam: Present: normal affect Oncology - Results - Labs Labs: Short CBC 10/12/16 Range/Units 03:50 WBC 4.9 (4.3-11.1) K/mcL Hgb 6.8 L (12.9-16.9) g/dL Hct 21.6 L (37.5-50.1) % Plt Count 100 L (140-400) K/mcL Neutrophils # 4.2 (1.6-8.9) K/mcL BMP 10/12/16 03:50 Sodium 137 Potassium 4.8 H Chloride 108 Carbon Dioxide 18 L BUN 123 H Creatinine 4.88 H Glucose 89 Calcium 8.1 L Urine 10/11/16 Range/Units 18:18 Urine Color Yellow (Yellow) Urine Clarity Clear (Clear) Urine pH 5.5 (5.0-8.0) pH Units Ur Specific [place] 1.012 (1.010-1.025) Urine Protein 100 H (Neg-Trace) mg/dL Urine Glucose (UA) Normal (Normal) mg/dL Consult Discharge Plan - Plan Referrals: Jeffy Guerra MD [Primary Care Provider] -
[2016-10-12] MEDS: Bumetanide 1 MG TABLET PO SCH (08:29)
[2016-10-12] MEDS: Sucralfate 1 GM TABLET PO SCH ×2 (08:30→23:05)
[2016-10-12] MEDS: Cholecalciferol (D-3) 1,000 UNIT TABLET PO SCH (08:30)
[2016-10-12] MEDS: Insulin LISPRO 300 UNITS/3 ML VIAL SQ SCH ×7 (08:30→23:06)
[2016-10-12] MEDS: Nicotine 14 MG PATCH.TD24 TD SCH (08:31)
[2016-10-12] MEDS ORDERED: Nicotine 14 MG PATCH.TD24 TD SCH (09:00)
[2016-10-12] MEDS ORDERED: 0.9 % Sodium Chloride 250 ML IV PRN (10:57)
--- NOTE | 2016-10-12 11:16 | Nephrology Progress Note ---
Date of Encounter: 10/12/16 Time of Encounter: 09:50 - Assessment and Plan (1) Acute on chronic kidney failure Current Visit: No Status: Acute DRU on CKD with edema, anemia and uremic symptoms of lost appetite. Will need to start HD today. IR consult to request a temporary HD catheter. Will plan on another HD tomorrow for further clearance and volume removal. He may not need chronic dialysis, hopefully. I reviewed the risks, benefits, indications for HD. I provided him time this AM to consider my recommendation and he later indicated his consent. Continue to follow a renal protective strategy: dose renally cleared Rx by GFR, avoid NSAIDs, Bactrim. Thank you (2) Anemia in chronic illness Current Visit: Yes Status: Chronic Goal Hgb is 10-11 (3) Anemia in chronic kidney disease Current Visit: Yes Status: Chronic See above (4) Hyperkalemia Current Visit: Yes Status: Acute HD for clearance (5) Edema Current Visit: No Status: Chronic HD for fluid removal. Qualifiers: Edema type: generalized Qualified Code(s): R60.1 - Generalized edema Subjective Principal diagnosis: DRU on CKD Interval history: Pt was seen/examined earlier today. He affirmed having diminished appetite associated with frequent Nausea. His edema has worsened (previously/chronically edematous at baseline). We discussed his labs and pros/cons, risks/benefits of HD. Objective - Vital Signs Vital signs: Vital Signs Temp Pulse Resp BP Pulse Ox 10/12/16 10:36 97.6 F 76 18 95/60 97 10/12/16 07:27 97.2 F L 75 17 117/64 98 10/12/16 03:47 97.4 F L 69 16 113/69 98 10/11/16 21:02 97.5 F L 78 14 108/66 98 10/11/16 21:01 97.6 F 68 16 119/75 98 10/11/16 20:35 97.3 F L 80 16 131/79 99 10/11/16 19:39 98 10/11/16 19:38 97.5 F L 80 14 108/68 97 10/11/16 19:01 97.8 F 73 16 113/75 98 10/11/16 17:17 97.7 F 67 16 109/70 97 10/11/16 16:40 97.9 F 74 16 105/65 97 10/11/16 15:35 97.4 F L 81 17 147/81 99 10/11/16 13:54 16 148/78 Intake and Output 10/11/16 10/12/16 10/12/16 23:59 07:59 15:59 Intake Total 590 / 590 350 / 350 360 / 360 Balance 590 / 590 350 / 350 360 / 360 Intake: Oral 240 / 240 360 / 360 Blood Product 350 / 350 350 / 350 Rbcs Leuko Poor As-1 350 / 350 Unit [id number] Rbcs Leuko Poor As-1 0 / 0 350 / 350 Unit [id number] Other: Meal Dinner Breakfast Percent of Meal Consumed 75% 100% # Voids 3 Weight 120.973 kg Blood Glucose* 183 91 Patient Weight 10/12/16 23:59 Weight 120.973 kg - General Appearance General appearance: Present: well-developed, well-nourished, appears started age , obese, chronically ill EENT: Present: ATNC, PERRL, mucous membranes moist Neck: Present: supple Respiratory: Present: course breath sounds Cardiology: Present: edema, regular rate, regular rhythm, normal S1, normal S2 Gastrointestinal: Present: normoactive bowel sounds, no tenderness, no guarding , no organomegaly Integumentary: Present: no rash, warm and dry Neurologic: Present: no focal deficit, no asterixis, alert and oriented x3 Musculoskeletal: Present: no deformities, no erythema, no cyanosis Psychiatric: Present: mood/affect appropriate, cooperative - Lab 10/12/16 03:50 10/12/16 03:50 Most recent lab results Calcium 8.1 mg/dL (8.6-10.8) L 10/12/16 03:50 Consult Discharge Plan - Plan Referrals: Jeffy Guerra MD [Primary Care Provider] -
--- NOTE | 2016-10-12 11:52 | Internal Med Progress Note ---
<Silverio Norwood - Last Filed: 10/12/16 15:41> Date of Encounter: 10/12/16 Time of Encounter: 11:50 - Assessment and plan (1) Acute on chronic kidney failure Current Visit: No Status: Acute Assessment and plan: Likely prerenal in etiology as patient had decreased oral intake with nausea and vomiting prior to admission Nephrology has been consulted, appreciate recommendations He has been set up for a temporary dialysis catheter today Patient presented with creatinine of 4.88, his baseline is roughly 3.2 and he has stage IV kidney disease (2) Infection of PEG site Current Visit: No Status: Acute Assessment and plan: Status post removal of the PEG tube by surgery Patient has been afebrile, not tachycardic, and white count remains normal Start patient on Vancomycin and Zosyn; renal dosing Will obtain blood cultures (3) Insulin dependent diabetes mellitus Current Visit: Yes Status: Chronic Assessment and plan: Blood sugars have been well-controlled since hospital admission plan Continue low-dose SSI before meals at bedtime Accu-Cheks (4) Anemia in chronic illness Current Visit: Yes Status: Chronic Assessment and plan: Patient presented with hemoglobin of 6.2, his baseline is somewhere between 8-10 He has been transfused 2 units since admission and we will recheck hemoglobin at this point and transfuse as necessary (5) Esophageal adenocarcinoma Current Visit: No Status: Chronic Assessment and plan: Oncology consulted, appreciate recommendations He has been on chemotherapy with Taxol and Ramucrumab (6) DVT prophylaxis Current Visit: No Status: Acute Assessment and plan: EPCDs in setting of chronic anemia - Subjective Interval history: Patient seen and examined. He states that he is still constipated and has not had a bowel movement in the last 9 days. He did have some nausea and vomiting but denies any blood. He denies any chest pain but does report right upper quadrant abdominal pain although his PEG tube with the left upper quadrant. Denies having any shortness of breath, fever, chills. - Constitutional Vitals: Temp Pulse Resp BP Pulse Ox 97.6 F 76 18 95/60 97 10/12/16 10:36 10/12/16 10:36 10/12/16 10:36 10/12/16 10:36 10/12/16 10:36 General appearance: Present: cooperative, morbidly obese, pleasant, no acute distress, answers questions appropriately - Head Head exam: Present: atraumatic, normocephalic - Eye Eye exam: Present: PERRL, conjuntiva pink, sclera anicteric - Neck Neck exam general surgery: Present: supple, trachea midline. Absent: lymphadenopathy - Respiratory Respiratory exam: Present: CTAB. Absent: accessory muscle use, rales, rhonchi, wheezes - Cardiovascular Cardiovascular exam: Present: RRR, +S1, +S2. Absent: diastolic murmur, gallop, rubs, systolic murmur - GI/Abdominal GI/Abdominal exam: Present: normal bowel sounds, soft, tenderness (RUQ), no peritoneal signs. Absent: distended Additional comments: left upper quadrant dressed s/p PEG removal - Extremities Exam Extremities exam: Present: pedal edema (2+ pitting edema), warm, radial pulses palpable and symetrical. Absent: calf tenderness, cyanotic - Neurological Exam Neurological exam: Present: alert, no focal deficits. Absent: facial droop, speech deficit - Skin Skin exam: Present: dry, intact Internal Medicine: Result - Labs CBC & Chem 7: 10/12/16 03:50 10/12/16 03:50 Labs: Short CBC 10/12/16 Range/Units 03:50 WBC 4.9 (4.3-11.1) K/mcL Hgb 6.8 L (12.9-16.9) g/dL Hct 21.6 L (37.5-50.1) % Plt Count 100 L (140-400) K/mcL Neutrophils # 4.2 (1.6-8.9) K/mcL BMP 10/12/16 03:50 Sodium 137 Potassium 4.8 H Chloride 108 Carbon Dioxide 18 L BUN 123 H Creatinine 4.88 H Glucose 89 Calcium 8.1 L Urine 10/11/16 Range/Units 18:18 Urine Color Yellow (Yellow) Urine Clarity Clear (Clear) Urine pH 5.5 (5.0-8.0) pH Units Ur Specific Waterproof 1.012 (1.010-1.025) Urine Protein 100 H (Neg-Trace) mg/dL Urine Glucose (UA) Normal (Normal) mg/dL Consult Discharge Plan - Plan Referrals: Jeffy Guerra MD [Primary Care Provider] - <Azeem Brown P - Last Filed: 10/12/16 18:38> - Constitutional Vitals: Temp Pulse Resp BP Pulse Ox 97.5 F L 81 17 97/64 96 10/12/16 16:43 10/12/16 16:43 10/12/16 16:43 10/12/16 16:43 10/12/16 16:43 Internal Medicine: Result - Labs CBC & Chem 7: 10/12/16 03:50 10/12/16 03:50 Labs: Short CBC 10/12/16 Range/Units 03:50 WBC 4.9 (4.3-11.1) K/mcL Hgb 6.8 L (12.9-16.9) g/dL Hct 21.6 L (37.5-50.1) % Plt Count 100 L (140-400) K/mcL Neutrophils # 4.2 (1.6-8.9) K/mcL BMP 10/12/16 03:50 Sodium 137 Potassium 4.8 H Chloride 108 Carbon Dioxide 18 L BUN 123 H Creatinine 4.88 H Glucose 89 Calcium 8.1 L - Impressions Impressions Guidance Needle Placement Ultrasound 10/12/16 00:00 IMPRESSION: Ultrasound-guided placement of a temporary right IJ hemodialysis catheter. A postprocedure chest radiograph has been performed, confirming adequate positioning. D/ / Sebastien Brooks MD / Sebastien Brooks MD Interpreting Provider: Sebastien Brooks MD Insertion Non-Tunneled Catheter 10/12/16 00:00 IMPRESSION: Ultrasound-guided placement of a temporary right IJ hemodialysis catheter. A postprocedure chest radiograph has been performed, confirming adequate positioning. D/ / Sebastien Brooks MD / Sebastien Brooks MD Interpreting Provider: Sebastien Brooks MD Chest X-Ray 10/12/16 14:57 IMPRESSION: 1. Interval placement of a temporary right IJ hemodialysis catheter, which is appropriately positioned. 2. Since the prior chest CT from July 2016, there has been development of multiple pulmonary nodules concerning for metastatic disease. Further evaluation with chest CT is recommended. Results of this examination, including the pulmonary nodules, are to be communicated to the patient's nurse by interventional radiology nursing staff at the time of this dictation. D/ / Sebastien Brooks MD / Sebastien Brooks MD Interpreting Provider: Sebastien Brooks MD - Attending Attestation I examined this patient and my medical decision-making was reviewed with the ACCOUNTING LECTURER/PA/Advanced Practice Nurse/Resident Physician. I agree with the documented findings, disposition and treatment plan as described except to the extent set forth below.
[2016-10-12] MEDS ORDERED: *HR* Heparin 5,000 UNIT/ML VIAL ONE (15:10)
--- NOTE | 2016-10-12 15:14 | IR Procedure Note ---
Date of procedure: 10/12/16 Consent Obtained: Verbal consent, Written consent Timeout: Correct patient and procedure verified, Correct site verified, Time out performed, Skin prep completed Local anesthetic: Lidocaine 1% Indications: Renal failure Procedure Performed: Temp HD catheter placed Site/Technique: Right IJ temp HD catheter placed Results/Findings: Right IJ temp HD catheter placed Estimated blood loss (cc): 1 Complications: None; Tolerated procedure well Post Procedure Treatment Plan: Post procedure CXR pending
--- NOTE | 2016-10-12 15:26 | Oncology Inp Progress Note ---
<SandersEricka edward - Last Filed: 10/12/16 15:23> Date of Encounter: 10/12/16 Time of Encounter: 15:23 (1) Esophageal adenocarcinoma Current Visit: No Status: Chronic Assessment and plan: Known history Will continue to monitor. helpw ith symptom management Oral intake with no difficulties, PEG tube removed via surgery, no need to replace at this time (2) Acute on chronic kidney failure Current Visit: No Status: Acute Assessment and plan: Nephrology following, plan for dialysis today y Oncology: Subj Interval history: Patient is currently awaiting to go to dialysis. Reports no problems with eating today. Is feeling swollen especially in his abdomen and is feeling increased pain because of the swelling. He still has not had a bowel movement but is waiting to take the laxative until after he finishes dialysis as he does not want to have to go to the bathroom in the middle of dialysis. He reports that he was at [facility] for consultation with regards to his GE carcinoma on Saturday and was informed at that time that he was not eligible for any clinical trials based on current results. He states that the oncologist told him he should consider an additional biopsy with possible additional genetic testing to determine if he would be eligible for any trials. - Constitutional Vitals: Vital Signs Temp Pulse Resp BP Pulse Ox 10/12/16 10:36 97.6 F 76 18 95/60 97 10/12/16 07:27 97.2 F L 75 17 117/64 98 10/12/16 03:47 97.4 F L 69 16 113/69 98 10/11/16 21:02 97.5 F L 78 14 108/66 98 10/11/16 21:01 97.6 F 68 16 119/75 98 10/11/16 20:35 97.3 F L 80 16 131/79 99 10/11/16 19:39 98 10/11/16 19:38 97.5 F L 80 14 108/68 97 10/11/16 19:01 97.8 F 73 16 113/75 98 10/11/16 17:17 97.7 F 67 16 109/70 97 10/11/16 16:40 97.9 F 74 16 105/65 97 10/11/16 15:35 97.4 F L 81 17 147/81 99 Intake and Output 10/11/16 10/12/16 10/12/16 23:59 07:59 15:59 Intake Total 590 / 590 350 / 350 720 / 720 Balance 590 / 590 350 / 350 720 / 720 Intake: Oral 240 / 240 720 / 720 Blood Product 350 / 350 350 / 350 Rbcs Leuko Poor As-1 350 / 350 Unit [id number] Rbcs Leuko Poor As-1 0 / 0 350 / 350 Unit [id number] Other: Meal Dinner Breakfast Percent of Meal Consumed 75% 100% # Voids 3 Weight 120.973 kg Blood Glucose* 183 91 104 Patient Weight 10/12/16 23:59 Weight 120.973 kg General appearance: no acute distress, obese - Neck Neck exam: Present: normal inspection. Absent: lymphadenopathy - Respiratory Respiratory exam: Present: CTAB. Absent: decreased breath sounds, respiratory distress, rhonchi, wheezes - Cardiovascular Cardiovascular exam: Present: RRR, +S1, +S2. Absent: clicks, gallop, rubs - GI/Abdominal GI/Abdominal exam: Present: distended, hypoactive bowel sounds, soft. Absent: rebound, rigid, tenderness Additional comments: fluid wave present - Extremities Exam Additional comments: +3 edema to knees lower extremities bilaterally Oncology: Obj Data - Labs CBC & Chem 7: 10/12/16 03:50 10/12/16 03:50 Labs: Laboratory Results - last 24 hr 10/11/16 10/11/16 10/11/16 15:04 15:20 18:18 WBC RBC Hgb Hct MCV MCH MCHC RDW Plt Count MPV Immature Gran % Seg Neutrophils % Lymphocytes % Monocytes % Eosinophils % Basophils % Neutrophils # Lymphocytes # Monocytes # Eosinophils # Basophils # Nucleated RBCs/100 WBC Immature Plt Fraction Sodium Potassium Chloride Carbon Dioxide BUN Creatinine Est GFR ( Amer) Est GFR (Non-Af Amer) BUN/Creatinine Ratio Glucose POC Glucose 158 H Calculated Osmolality Calcium Vitamin B12 25-OH Vitamin D Total Folate Urine Color Yellow Urine Clarity Clear Urine pH 5.5 Ur Specific Tyner 1.012 Urine Protein 100 H Urine Glucose (UA) Normal Urine Ketones Negative Urine Blood Negative Urine Nitrite Negative Urine Bilirubin Negative Urine Urobilinogen Normal Ur Leukocyte Esterase Negative Urine Microscopic RBC 5-15 H Urine Microscopic WBC 0-3 Ur Squamous Epith Cells Few Urine Bacteria None Seen Hyaline Casts None Seen Ur Culture Indicated? NO Hep Bs Antigen Blood Type O POSITIVE Antibody Screen NEGATIVE Crossmatch See Detail 10/11/16 10/12/16 10/12/16 19:22 03:50 03:50 WBC 4.9 RBC 2.37 L Hgb 6.8 L Hct 21.6 L MCV 91.1 MCH 28.7 MCHC 31.5 L RDW 19.2 H Plt Count 100 L MPV 11.4 Immature Gran % 1.2 Seg Neutrophils % 86.0 Lymphocytes % 5.5 Monocytes % 7.3 Eosinophils % 0.0 Basophils % 0.0 Neutrophils # 4.2 Lymphocytes # 0.3 L Monocytes # 0.4 Eosinophils # 0.0 Basophils # 0.0 Nucleated RBCs/100 WBC 1.0 H Immature Plt Fraction 2.7 Sodium 137 Potassium 4.8 H Chloride 108 Carbon Dioxide 18 L BUN 123 H Creatinine 4.88 H Est GFR ( Amer) 15 L Est GFR (Non-Af Amer) 12 L BUN/Creatinine Ratio 25 Glucose 89 POC Glucose 183 H Calculated Osmolality 323 H Calcium 8.1 L Vitamin B12 25-OH Vitamin D Total Folate Urine Color Urine Clarity Urine pH Ur Specific Tyner Urine Protein Urine Glucose (UA) Urine Ketones Urine Blood Urine Nitrite Urine Bilirubin Urine Urobilinogen Ur Leukocyte Esterase Urine Microscopic RBC Urine Microscopic WBC Ur Squamous Epith Cells Urine Bacteria Hyaline Casts Ur Culture Indicated? Hep Bs Antigen Blood Type Antibody Screen Crossmatch 10/12/16 10/12/16 10/12/16 03:50 03:50 03:50 WBC RBC Hgb Hct MCV MCH MCHC RDW Plt Count MPV Immature Gran % Seg Neutrophils % Lymphocytes % Monocytes % Eosinophils % Basophils % Neutrophils # Lymphocytes # Monocytes # Eosinophils # Basophils # Nucleated RBCs/100 WBC Immature Plt Fraction Sodium Potassium Chloride Carbon Dioxide BUN Creatinine Est GFR ( Amer) Est GFR (Non-Af Amer) BUN/Creatinine Ratio Glucose POC Glucose Calculated Osmolality Calcium Vitamin B12 758 25-OH Vitamin D Total 36 Folate 8.2 Urine Color Urine Clarity Urine pH Ur Specific Tyner Urine Protein Urine Glucose (UA) Urine Ketones Urine Blood Urine Nitrite Urine Bilirubin Urine Urobilinogen Ur Leukocyte Esterase Urine Microscopic RBC Urine Microscopic WBC Ur Squamous Epith Cells Urine Bacteria Hyaline Casts Ur Culture Indicated? Hep Bs Antigen Nonreactive Blood Type Antibody Screen Crossmatch 10/12/16 07:31 WBC RBC Hgb Hct MCV MCH MCHC RDW Plt Count MPV Immature Gran % Seg Neutrophils % Lymphocytes % Monocytes % Eosinophils % Basophils % Neutrophils # Lymphocytes # Monocytes # Eosinophils # Basophils # Nucleated RBCs/100 WBC Immature Plt Fraction Sodium Potassium Chloride Carbon Dioxide BUN Creatinine Est GFR ( Amer) Est GFR (Non-Af Amer) BUN/Creatinine Ratio Glucose POC Glucose 91 H Calculated Osmolality Calcium Vitamin B12 25-OH Vitamin D Total Folate Urine Color Urine Clarity Urine pH Ur Specific Tyner Urine Protein Urine Glucose (UA) Urine Ketones Urine Blood Urine Nitrite Urine Bilirubin Urine Urobilinogen Ur Leukocyte Esterase Urine Microscopic RBC Urine Microscopic WBC Ur Squamous Epith Cells Urine Bacteria Hyaline Casts Ur Culture Indicated? Hep Bs Antigen Blood Type Antibody Screen Crossmatch Consult Discharge Plan - Plan Referrals: Jeffy Guerra MD [Primary Care Provider] - <Vidya Riojasapathy S - Last Filed: 10/15/16 09:06> - Constitutional Vitals: Vital Signs Temp Pulse Resp BP Pulse Ox 10/15/16 07:34 97.5 F L 82 14 117/66 98 10/15/16 04:17 97.6 F 88 18 142/69 98 10/15/16 00:33 97.9 F 80 18 112/72 96 10/14/16 20:53 97.7 F 96 18 155/67 99 10/14/16 16:26 97.8 F 88 16 114/65 98 10/14/16 12:15 97.5 F L 110 16 115/71 98 Intake and Output 10/14/16 10/15/16 10/15/16 23:59 07:59 15:59 Intake Total 100 / 100 Balance 100 / 100 Intake: IV Fluids 100 / 100 Zosyn 3.375 GM In 100 / 100 Dextrose 5% (Minibag+) 100 ML 100 ML @ 25 mls/hr IVPB Q12H [facility] Rx#: [id number] Oral 0 / 0 Other: Weight 117.48 kg Blood Glucose* 193 151 Patient Weight 10/15/16 23:59 Weight 117.48 kg Oncology: Obj Data - Labs CBC & Chem 7: 10/15/16 03:15 10/15/16 03:15 Labs: Laboratory Results - last 24 hr 10/14/16 10/14/16 10/14/16 04:55 11:39 15:54 WBC RBC Hgb Hct MCV MCH MCHC RDW Plt Count MPV Seg Neutrophils % Lymphocytes % Monocytes % Neutrophils # Lymphocytes # Monocytes # Nucleated RBCs/100 WBC Platelet Estimate Large Platelets Polychromasia Anisocytosis Sodium 138 Potassium 3.9 Chloride 104 Carbon Dioxide 22 BUN 64 H D Creatinine 3.93 H Est GFR ( Amer) 19 L Est GFR (Non-Af Amer) 16 L BUN/Creatinine Ratio 16 Glucose 113 H POC Glucose 160 H 82 Calculated Osmolality 305 H Calcium 7.8 L Phosphorus Magnesium Vancomycin Trough 10.7 10/14/16 10/15/16 10/15/16 20:56 03:15 03:15 WBC 6.4 RBC 1.89 L Hgb 5.5 L* Hct 17.5 L MCV 92.6 MCH 29.1 MCHC 31.4 L RDW 18.1 H Plt Count 64 L MPV 11.6 Seg Neutrophils % 86.0 Lymphocytes % 6.0 Monocytes % 8.0 Neutrophils # 5.5 Lymphocytes # 0.4 L Monocytes # 0.5 Nucleated RBCs/100 WBC 0.3 H Platelet Estimate Decreased L Large Platelets Present A Polychromasia 1+ A Anisocytosis 2+ A Sodium 135 L Potassium 4.1 Chloride 101 Carbon Dioxide 24 BUN 78 H Creatinine 4.91 H Est GFR ( Amer) 15 L Est GFR (Non-Af Amer) 12 L BUN/Creatinine Ratio 16 Glucose 85 POC Glucose 193 H Calculated Osmolality 303 H Calcium 7.6 L Phosphorus 5.1 H Magnesium 1.7 Vancomycin Trough 10/15/16 10/15/16 03:15 08:14 WBC RBC Hgb Hct MCV MCH MCHC RDW Plt Count MPV Seg Neutrophils % Lymphocytes % Monocytes % Neutrophils # Lymphocytes # Monocytes # Nucleated RBCs/100 WBC Platelet Estimate Large Platelets Polychromasia Anisocytosis Sodium Potassium Chloride Carbon Dioxide BUN Creatinine Est GFR ( Amer) Est GFR (Non-Af Amer) BUN/Creatinine Ratio Glucose POC Glucose 151 H Calculated Osmolality Calcium Phosphorus Magnesium Vancomycin Trough 23.4 H*
[2016-10-12] MEDS ORDERED: Vancomycin 1,750 MG in D5% in Water 500 ML IVPB ONE (15:44)
[2016-10-12] MEDS ORDERED: ceFAZolin 1,000 MG in D5% in Water (Mini-Bag+) 100 ML IVPB SCH (16:00)
[2016-10-12] MEDS ORDERED: Vancomycin 1 EACH in D5% in Water 250 ML IVPB SCH (16:00)
[2016-10-12] MEDS: Piperacillin/Tazobactam 3.375 GM in D5% in Water (Mini-Bag+) 100 ML IVPB SCH (16:03)
[2016-10-12] MEDS: Ondansetron 4 MG/2 ML VIAL IVP PRN (16:03)
[2016-10-12] MEDS: Miconazole w/zinc oxide&karaya 92 APPL/92 GM TUBE TP SCH (16:04)
[2016-10-12] MEDS ORDERED: *HR* Heparin 10,000 UNIT/10 ML VIAL IV PRN (21:30)
[2016-10-12] MEDS: Insulin DETEMIR 100 UNIT/ML X5UNITS SQ SCH (23:30)
[2016-10-13] MEDS: Piperacillin/Tazobactam 3.375 GM in D5% in Water (Mini-Bag+) 100 ML IVPB SCH ×2 (03:48→18:19)
[2016-10-13] MEDS: Ondansetron 4 MG/2 ML VIAL IVP PRN (03:54)
[2016-10-13] MEDS ORDERED: 0.9 % Sodium Chloride 250 ML IV PRN (08:46)
[2016-10-13] MEDS ORDERED: Albumin 25% 12.5gm/50mL 12.5 GM/50 ML IV.SOLN IVPB PRN (08:46)
[2016-10-13] MEDS: Insulin LISPRO 300 UNITS/3 ML VIAL SQ SCH ×7 (09:44→21:41)
[2016-10-13] MEDS: Cholecalciferol (D-3) 1,000 UNIT TABLET PO SCH (09:45)
[2016-10-13] MEDS: Nicotine 14 MG PATCH.TD24 TD SCH (09:45)
[2016-10-13] MEDS: Sucralfate 1 GM TABLET PO SCH ×2 (09:45→21:42)
--- NOTE | 2016-10-13 10:59 | Nephrology Progress Note ---
Date of Encounter: 10/13/16 Time of Encounter: 08:50 - Assessment and Plan (1) Acute on chronic kidney failure Current Visit: No Status: Acute 2nd HD scheduled for today with prn intradialytic albumin to help minimize/ prevent intradialytic hypotension. Hold Bumex today and if he develops further hypotension, then hold spironolactone DRU on CKD with edema, anemia and uremic symptoms of lost appetite. Started HD yesterday for DRU via a temporary HD catheter (appreciated IR) He may not need chronic dialysis, hopefully. Continue to follow a renal protective strategy: dose renally cleared Rx by GFR, avoid NSAIDs, Bactrim. Thank you (2) Anemia in chronic illness Current Visit: Yes Status: Chronic Goal Hgb is 10-11 (3) Anemia in chronic kidney disease Current Visit: Yes Status: Chronic See above (4) Hyperkalemia Current Visit: Yes Status: Acute HD for clearance. May need to hold Spironolactone if any worse. (5) Edema Current Visit: No Status: Chronic HD for fluid removal. Hold Bumex but attempt to continue Spironolactone for ongoing treatment of anasarca. Qualifiers: Edema type: generalized Qualified Code(s): R60.1 - Generalized edema Subjective Principal diagnosis: DRU on CKD Interval history: Pt was seen/examined earlier today. He reported having some dizziness and lower BPs last night. He was transferred to . He did not affirm CP, but continues to have a diminished appetite. His RN was at bedside: held Bumex today, which was communicated with her. Objective - Vital Signs Vital signs: Vital Signs Temp Pulse Resp BP Pulse Ox 10/13/16 08:47 97 10/13/16 08:29 97.7 F 84 18 98/58 97 10/13/16 05:08 97.2 F L 80 12 103/61 92 L 10/13/16 03:39 98/58 10/12/16 22:43 97.7 F 86 18 96/58 100 10/12/16 22:05 97.5 F L 16 90/44 10/12/16 22:00 107/56 10/12/16 21:45 83/45 10/12/16 21:30 86/48 10/12/16 21:15 89/51 10/12/16 21:00 91/47 10/12/16 20:45 88/50 10/12/16 20:30 89/43 10/12/16 20:15 85/42 10/12/16 20:00 97.5 F L 16 91/56 10/12/16 16:43 97.5 F L 81 17 97/64 96 Intake and Output 10/12/16 10/13/16 10/13/16 23:59 07:59 15:59 Intake Total 700 / 700 100 / 100 Output Total 3500 / 3500 Balance -2800 / -2800 100 / 100 Intake: IV Fluids 100 / 100 100 / 100 Zosyn 3.375 GM In 100 / 100 100 / 100 Dextrose 5% (Minibag+) 100 ML 100 ML @ 25 mls/hr IVPB Q12H [facility] Rx#: [id number] Oral 0 / 0 Intake, Rinseback and 600 / 600 Flushes Output: Urine 400 / 400 Total Dialysis Output 3100 / 3100 Other: Weight 121.1 kg Blood Glucose* 141 127 Hemodialysis Net Fluid 2500 Removed (mL) Patient Weight 10/13/16 23:59 Weight 121.1 kg - General Appearance General appearance: Present: well-developed, obese, frail EENT: Present: ATNC, PERRL, mucous membranes moist Neck: Present: supple Respiratory: Present: clear Cardiology: Present: edema (Up to the pretibial b/l), regular rate, normal S1, normal S2 Dialysis Vascular Access: Venous Catheter (RIJ temporary HD catheter) Gastrointestinal: Present: normoactive bowel sounds, no guarding Integumentary: Present: warm and dry Neurologic: Present: no focal deficit, no asterixis, alert and oriented x3 Musculoskeletal: Present: no deformities, no erythema, no cyanosis Psychiatric: Present: mood/affect appropriate, cooperative - Lab 10/14/16 04:55 10/12/16 03:50 Most recent lab results Calcium 8.1 mg/dL (8.6-10.8) L 10/12/16 03:50 Consult Discharge Plan - Plan Referrals: Jeffy Guerra MD [Primary Care Provider] -
[2016-10-13] MEDS: Miconazole w/zinc oxide&karaya 92 APPL/92 GM TUBE TP SCH (13:02)
--- NOTE | 2016-10-13 16:42 | Internal Med Progress Note ---
Date of Encounter: 10/13/16 Time of Encounter: 16:40 - Assessment and plan (1) Acute on chronic kidney failure Current Visit: No Status: Acute Assessment and plan: Likely prerenal in etiology as patient had decreased oral intake with nausea and vomiting prior to admission Nephrology has been consulted, appreciate recommendations He has been set up for a temporary dialysis catheter today Patient presented with creatinine of 4.88, his baseline is roughly 3.2 and he has stage IV kidney disease 10/13/2016. Patient is scheduled for dialysis today. Nephrology is on the board. We will follow recommendations from nephrology. (2) Infection of PEG site Current Visit: No Status: Acute Assessment and plan: Status post removal of the PEG tube by surgery Patient has been afebrile, not tachycardic, and white count remains normal Start patient on Vancomycin and Zosyn; renal dosing Will obtain blood cultures 10/13/2016. Currently on antibiotics. No new discharge from PEG site or any febrile episode in last 24 hours. We will continue present treatment (3) Insulin dependent diabetes mellitus Current Visit: Yes Status: Chronic Assessment and plan: Blood sugars have been well-controlled since hospital admission plan Continue low-dose SSI before meals at bedtime Accu-Cheks (4) Anemia in chronic illness Current Visit: Yes Status: Chronic Assessment and plan: Patient presented with hemoglobin of 6.2, his baseline is somewhere between 8-10 He has been transfused 2 units since admission and we will recheck hemoglobin at this point and transfuse as necessary (5) Esophageal adenocarcinoma Current Visit: No Status: Chronic Assessment and plan: Oncology consulted, appreciate recommendations He has been on chemotherapy with Taxol and Ramucrumab - Subjective Interval history: Patient seen and examined. Chart reviewed. Patient is comfortably sitting in a chair. He scheduled for dialysis today. - Constitutional Vitals: Temp Pulse Resp BP Pulse Ox 98.2 F 86 16 114/60 98 10/13/16 15:05 10/13/16 12:11 10/13/16 15:05 10/13/16 16:05 10/13/16 12:11 General appearance: Present: cooperative, morbidly obese, pleasant, no acute distress, answers questions appropriately - Head Head exam: Present: atraumatic, normocephalic - Eye Eye exam: Present: PERRL, conjuntiva pink, sclera anicteric Pupils: Present: PERRL - Neck Neck exam general surgery: Present: supple, trachea midline. Absent: lymphadenopathy - Respiratory Respiratory exam: Present: CTAB. Absent: accessory muscle use, rales, rhonchi, wheezes - Cardiovascular Cardiovascular exam: Present: RRR, +S1, +S2. Absent: diastolic murmur, gallop, rubs, systolic murmur - GI/Abdominal GI/Abdominal exam: Present: normal bowel sounds, soft, no peritoneal signs. Absent: distended, tenderness - Extremities Exam Extremities exam: Present: warm, radial pulses palpable and symetrical. Absent : calf tenderness, cyanotic, pedal edema - Neurological Exam Neurological exam: Present: CN II-XII intact, oriented X3, no focal deficits. Absent: pronater drift, facial droop, speech deficit - Skin Skin exam: Present: dry, intact Internal Medicine: Result - Labs CBC & Chem 7: 10/12/16 03:50 10/12/16 03:50 Consult Discharge Plan - Plan Referrals: Jeffy Guerra MD [Primary Care Provider] -
[2016-10-13] MEDS ORDERED: *HR* Heparin 10,000 UNIT/10 ML VIAL IV PRN (17:22)
[2016-10-13] MEDS: Insulin DETEMIR 100 UNIT/ML X5UNITS SQ SCH (21:43)
[2016-10-14] MEDS: Piperacillin/Tazobactam 3.375 GM in D5% in Water (Mini-Bag+) 100 ML IVPB SCH ×2 (04:00→14:24)
[2016-10-14 05:28] LABS: Vancomycin,Trough 10.7 mcg/mL (10-20)
[2016-10-14] MEDS: Nicotine 14 MG PATCH.TD24 TD SCH (08:16)
[2016-10-14] MEDS: Sucralfate 1 GM TABLET PO SCH ×2 (08:16→21:21)
[2016-10-14] MEDS: Cholecalciferol (D-3) 1,000 UNIT TABLET PO SCH (08:16)
[2016-10-14] MEDS: Insulin LISPRO 300 UNITS/3 ML VIAL SQ SCH ×7 (08:19→21:13)
[2016-10-14 08:23] LABS: Basophils % 0.1 %; Immature Granulocytes % 0.4 % (0-4); Monocytes % 5.7 %; Red Cell Distribution Width 18.6 % (11.5-14.5)
[2016-10-14 08:25] LABS: Eosinophils % 0.4 %; Hematocrit 19.5 % (37.5-50.1); Hemoglobin 6.2 g/dL (12.9-16.9); Immature Platelets 4.9 % (1.1-6.1); Lymphocytes # 0.3 K/mcL (0.6-4.6); Lymphocytes % 4.3 %; Mean Corpuscular HGB Conc 31.8 g/dL (31.6-35.5); Mean Corpuscular Hemoglobin 29.2 pg (28.0-33.3); Mean Platelet Volume 11.3 fL (9.4-12.4); Monocytes # 0.4 K/mcL (0.0-1.3); Neutrophils # 6.9 K/mcL (1.6-8.9); Red Blood Count 2.12 M/mcL (4.19-5.50); Segmented Neutrophils % 89.1 %
--- NOTE | 2016-10-14 08:33 | Nephrology Progress Note ---
Date of Encounter: 10/14/16 Time of Encounter: 10:10 - Assessment and Plan (1) Acute on chronic kidney failure Current Visit: No Status: Acute Pending labs again today. Will hold off on HD and await labs. We reassess dialytic needs on Saturday. Given his ongoing severe edema, I will resume Bumex today since I will not have him undergo dialysis today. Continue to follow a renal protective strategy: dose renally cleared Rx by GFR, avoid NSAIDs, Bactrim. DRU on CKD with edema, anemia and uremic symptoms of lost appetite. He may not need chronic dialysis, hopefully. Follow a renal protective strategy to help encourage renal recover: dose Rx by GFR, adequate water intake, avoid Hypotension. Thank you (2) Anemia in chronic illness Current Visit: Yes Status: Chronic Goal Hgb is 10-11 Pending Hgb. Transfusion parameters as per primary. (3) Hyperkalemia Current Visit: Yes Status: Acute HD for clearance (4) Edema Current Visit: No Status: Chronic HD for fluid removal. Qualifiers: Edema type: generalized Qualified Code(s): R60.1 - Generalized edema Subjective Principal diagnosis: DRU on CKD Interval history: Pt was seen/examined earlier today. He affirmed having diminished appetite associated with frequent Nausea. His edema has worsened (previously/chronically edematous at baseline). He c/o constipation. Objective - Vital Signs Vital signs: Vital Signs Temp Pulse Resp BP Pulse Ox 10/14/16 07:47 97.6 F 82 20 130/76 89 L 10/14/16 05:45 97.8 F 87 17 98/60 98 10/14/16 01:36 97.6 F 77 18 93/59 98 10/13/16 21:30 97.5 F L 86 16 106/70 99 10/13/16 17:40 98.2 F 16 101/50 10/13/16 17:35 103/53 10/13/16 17:20 101/53 10/13/16 17:05 103/62 10/13/16 16:50 107/60 Intake and Output 10/13/16 10/14/16 10/14/16 23:59 07:59 15:59 Intake Total 100 / 100 100 / 100 Output Total 3600 / 3600 Balance -3500 / -3500 100 / 100 Intake: IV Fluids 100 / 100 100 / 100 Zosyn 3.375 GM In 100 / 100 100 / 100 Dextrose 5% (Minibag+) 100 ML 100 ML @ 25 mls/hr IVPB Q12H [facility] Rx#: [id number] Oral 0 / 0 Output: Urine 0 / 0 Total Dialysis Output 3600 / 3600 Other: Weight 123.3 kg Blood Glucose* 105 131 Hemodialysis Net Fluid 3000 Removed (mL) Patient Weight 10/14/16 23:59 Weight 123.3 kg - General Appearance General appearance: Present: well-developed, obese, chronically ill, fatigue, frail EENT: Present: ATNC, mucous membranes moist Neck: Present: supple Respiratory: Present: course breath sounds Cardiology: Present: edema, regular rate, normal S1, normal S2 Dialysis Vascular Access: Venous Catheter ([facility] HD catheter was C/D/I) Gastrointestinal: Present: normoactive bowel sounds, no guarding Integumentary: Present: no rash, warm and dry Neurologic: Present: no focal deficit, no asterixis, alert and oriented x3 Musculoskeletal: Present: no deformities, no erythema Psychiatric: Present: mood/affect appropriate, cooperative - Lab 10/15/16 03:15 10/15/16 03:15 Most recent lab results Calcium 8.1 mg/dL (8.6-10.8) L 10/12/16 03:50 Consult Discharge Plan - Plan Referrals: Jeffy Guerra MD [Primary Care Provider] - 10/23/16 10:00 am
[2016-10-14] MEDS: Bumetanide 1 MG TABLET PO SCH (08:39)
[2016-10-14 08:59] LABS: Platelet Count 83 K/mcL (140-400)
[2016-10-14 09:01] LABS: Anisocytosis 1+ (Not Present); Microcytosis Present (Not Present); Poikilocytosis 1+ (Not Present)
[2016-10-14 09:02] LABS: Platelet Estimate Slight Decrease (Normal)
[2016-10-14 09:47] LABS: Calcium 7.8 mg/dL (8.6-10.8); Potassium 3.9 mEq/L (3.5-4.5)
[2016-10-14] MEDS: Miconazole w/zinc oxide&karaya 92 APPL/92 GM TUBE TP SCH (11:41)
[2016-10-14] MEDS ORDERED: Vancomycin 1,000 MG in D5% in Water 250 ML IVPB ONE (15:00)
--- NOTE | 2016-10-14 15:57 | Internal Med Progress Note ---
Date of Encounter: 10/14/16 Time of Encounter: 15:54 - Assessment and plan (1) Acute on chronic kidney failure Current Visit: No Status: Acute Assessment and plan: Likely prerenal in etiology as patient had decreased oral intake with nausea and vomiting prior to admission Nephrology has been consulted, appreciate recommendations He has been set up for a temporary dialysis catheter today Patient presented with creatinine of 4.88, his baseline is roughly 3.2 and he has stage IV kidney disease 10/13/2016. Patient is scheduled for dialysis today. Nephrology is on the board. We will follow recommendations from nephrology. 10/14/2016 scheduled for HD tomorrow noted that Hb is 6.2 case discussed with [employer] Dr Wagner and will transfuse him tomorrow 2 PRBCs after HD. (2) Infection of PEG site Current Visit: No Status: Acute Assessment and plan: Status post removal of the PEG tube by surgery Patient has been afebrile, not tachycardic, and white count remains normal Start patient on Vancomycin and Zosyn; renal dosing Will obtain blood cultures 10/13/2016. Currently on antibiotics. No new discharge from PEG site or any febrile episode in last 24 hours. We will continue present treatment 10/14/2016 no new developments will continue abx (3) Insulin dependent diabetes mellitus Current Visit: Yes Status: Chronic Assessment and plan: Blood sugars have been well-controlled since hospital admission plan Continue low-dose SSI before meals at bedtime Accu-Cheks (4) Anemia in chronic illness Current Visit: Yes Status: Chronic Assessment and plan: Patient presented with hemoglobin of 6.2, his baseline is somewhere between 8-10 He has been transfused 2 units since admission and we will recheck hemoglobin at this point and transfuse as necessary (5) Esophageal adenocarcinoma Current Visit: No Status: Chronic Assessment and plan: Oncology consulted, appreciate recommendations He has been on chemotherapy with Taxol and Ramucrumab - Subjective Interval history: Patient seen and examined. Chart reviewed. Patient is comfortably sitting in a chair. He scheduled for dialysis today. 10/14/2016 seen and examined. chart reviewed. sitting at bedside and eating breakfast. no new complaints. - Constitutional Vitals: Temp Pulse Resp BP Pulse Ox 97.5 F L 110 16 115/71 98 10/14/16 12:15 10/14/16 12:15 10/14/16 12:15 10/14/16 12:15 10/14/16 12:15 General appearance: Present: cooperative, morbidly obese, pleasant, no acute distress, answers questions appropriately - Head Head exam: Present: atraumatic, normocephalic - Eye Eye exam: Present: PERRL, conjuntiva pink, sclera anicteric Pupils: Present: PERRL - Neck Neck exam general surgery: Present: supple, trachea midline. Absent: lymphadenopathy - Respiratory Respiratory exam: Present: CTAB. Absent: accessory muscle use, rales, rhonchi, wheezes - Cardiovascular Cardiovascular exam: Present: RRR, +S1, +S2. Absent: diastolic murmur, gallop, rubs, systolic murmur - GI/Abdominal GI/Abdominal exam: Present: normal bowel sounds, soft, no peritoneal signs. Absent: distended, tenderness - Extremities Exam Extremities exam: Present: warm, radial pulses palpable and symetrical. Absent : calf tenderness, cyanotic, pedal edema - Neurological Exam Neurological exam: Present: CN II-XII intact, oriented X3, no focal deficits. Absent: pronater drift, facial droop, speech deficit - Skin Skin exam: Present: dry, intact Internal Medicine: Result - Labs CBC & Chem 7: 10/14/16 04:55 10/14/16 04:55 Labs: Short CBC 10/14/16 Range/Units 04:55 WBC 7.7 D (4.3-11.1) K/mcL Hgb 6.2 L (12.9-16.9) g/dL Hct 19.5 L (37.5-50.1) % Plt Count 83 L (140-400) K/mcL Neutrophils # 6.9 (1.6-8.9) K/mcL BMP 10/14/16 04:55 Sodium 138 Potassium 3.9 Chloride 104 Carbon Dioxide 22 BUN 64 H D Creatinine 3.93 H Glucose 113 H Calcium 7.8 L Consult Discharge Plan - Plan Referrals: Jeffy Guerra MD [Primary Care Provider] -
[2016-10-14] MEDS ORDERED: Vancomycin 1,750 MG in D5% in Water 500 ML IVPB ONE (18:00)
[2016-10-14] MEDS: Insulin DETEMIR 100 UNIT/ML X5UNITS SQ SCH (21:21)
[2016-10-15 03:52] LABS: Hematocrit 17.5 % (37.5-50.1); Mean Corpuscular HGB Conc 31.4 g/dL (31.6-35.5); Mean Corpuscular Hemoglobin 29.1 pg (28.0-33.3); Mean Corpuscular Volume 92.6 fL (83.0-100.0); Mean Platelet Volume 11.6 fL (9.4-12.4); Nucleated Red Blood Cells 0.3 /100 WBC (0); Red Blood Count 1.89 M/mcL (4.19-5.50); Red Cell Distribution Width 18.1 % (11.5-14.5)
[2016-10-15] MEDS: Piperacillin/Tazobactam 3.375 GM in D5% in Water (Mini-Bag+) 100 ML IVPB SCH ×2 (03:52→18:36)
[2016-10-15 04:04] LABS: Calcium 7.6 mg/dL (8.6-10.8); Magnesium 1.7 mg/dL (1.6-2.6); Phosphorous 5.1 mg/dL (2.3-4.7); Potassium 4.1 mEq/L (3.5-4.5)
[2016-10-15 04:26] LABS: Platelet Count 64 K/mcL (140-400)
[2016-10-15 04:31] LABS: Hemoglobin 5.5 g/dL (12.9-16.9)
[2016-10-15 04:38] LABS: Large Platelets Present (Not Present); Lymphocytes # 0.4 K/mcL (0.6-4.6); Monocytes # 0.5 K/mcL (0.0-1.3); Neutrophils # 5.5 K/mcL (1.6-8.9); Platelet Estimate Decreased (Normal); Polychromasia 1+ (Not Present)
[2016-10-15 04:39] LABS: Anisocytosis 2+ (Not Present)
[2016-10-15] MEDS: Nicotine 14 MG PATCH.TD24 TD SCH (06:09)
[2016-10-15] MEDS: Sucralfate 1 GM TABLET PO SCH ×2 (06:10→21:56)
[2016-10-15] MEDS: Cholecalciferol (D-3) 1,000 UNIT TABLET PO SCH (06:10)
[2016-10-15] MEDS ORDERED: 0.9 % Sodium Chloride 250 ML IV PRN (08:19)
[2016-10-15] MEDS: Sennosides 8.6 MG TABLET PO PRN ×2 (09:14→18:41)
[2016-10-15] MEDS: Insulin LISPRO 300 UNITS/3 ML VIAL SQ SCH ×7 (09:14→21:52)
[2016-10-15] MEDS: Miconazole w/zinc oxide&karaya 92 APPL/92 GM TUBE TP SCH (12:11)
--- NOTE | 2016-10-15 13:17 | Internal Med Progress Note ---
Date of Encounter: 10/15/16 Time of Encounter: 13:15 - Assessment and plan (1) Acute on chronic kidney failure Current Visit: No Status: Acute Assessment and plan: Likely prerenal in etiology as patient had decreased oral intake with nausea and vomiting prior to admission Nephrology has been consulted, appreciate recommendations He has been set up for a temporary dialysis catheter today Patient presented with creatinine of 4.88, his baseline is roughly 3.2 and he has stage IV kidney disease 10/13/2016. Patient is scheduled for dialysis today. Nephrology is on the board. We will follow recommendations from nephrology. 10/14/2016 scheduled for HD tomorrow noted that Hb is 6.2 case discussed with [employer] Dr Wagner and will transfuse him tomorrow 2 PRBCs after HD. 10/05/2016 noted Hb is less than 6 plan is to transfuse 2 PRBC today after HD spoke with renal and updated above. plan for ultrafiltration tomorrow (2) Infection of PEG site Current Visit: No Status: Acute Assessment and plan: Status post removal of the PEG tube by surgery Patient has been afebrile, not tachycardic, and white count remains normal Start patient on Vancomycin and Zosyn; renal dosing Will obtain blood cultures 10/13/2016. Currently on antibiotics. No new discharge from PEG site or any febrile episode in last 24 hours. We will continue present treatment 10/14/2016 no new developments will continue abx 10/15/2016 no new complaints continue abx (3) Insulin dependent diabetes mellitus Current Visit: Yes Status: Chronic Assessment and plan: Blood sugars have been well-controlled since hospital admission plan Continue low-dose SSI before meals at bedtime Accu-Cheks (4) Anemia in chronic illness Current Visit: Yes Status: Chronic Assessment and plan: Patient presented with hemoglobin of 6.2, his baseline is somewhere between 8-10 He has been transfused 2 units since admission and we will recheck hemoglobin at this point and transfuse as necessary (5) Esophageal adenocarcinoma Current Visit: No Status: Chronic Assessment and plan: Oncology consulted, appreciate recommendations He has been on chemotherapy with Taxol and Ramucrumab - Subjective Interval history: Patient seen and examined. Chart reviewed. Patient is comfortably sitting in a chair. He scheduled for dialysis today. 10/14/2016 seen and examined. chart reviewed. sitting at bedside and eating breakfast. no new complaints. 10/15/2016 seen and examined. patient is stable and awaiting for HD no new complaints. - Constitutional Vitals: Temp Pulse Resp BP Pulse Ox 98.6 F 79 14 114/68 100 10/15/16 11:46 10/15/16 11:46 10/15/16 11:46 10/15/16 11:46 10/15/16 11:46 General appearance: Present: cooperative, morbidly obese, pleasant, no acute distress, answers questions appropriately - Head Head exam: Present: atraumatic, normocephalic - Eye Eye exam: Present: PERRL, conjuntiva pink, sclera anicteric Pupils: Present: PERRL - Neck Neck exam general surgery: Present: supple, trachea midline. Absent: lymphadenopathy - Respiratory Respiratory exam: Present: CTAB. Absent: accessory muscle use, rales, rhonchi, wheezes - Cardiovascular Cardiovascular exam: Present: RRR, +S1, +S2. Absent: diastolic murmur, gallop, rubs, systolic murmur - GI/Abdominal GI/Abdominal exam: Present: normal bowel sounds, soft, no peritoneal signs. Absent: distended, tenderness - Extremities Exam Extremities exam: Present: warm, radial pulses palpable and symetrical. Absent : calf tenderness, cyanotic, pedal edema - Neurological Exam Neurological exam: Present: CN II-XII intact, oriented X3, no focal deficits. Absent: pronater drift, facial droop, speech deficit - Skin Skin exam: Present: dry, intact Internal Medicine: Result - Labs CBC & Chem 7: 10/15/16 03:15 10/15/16 03:15 Labs: Short CBC 10/15/16 Range/Units 03:15 WBC 6.4 (4.3-11.1) K/mcL Hgb 5.5 L* (12.9-16.9) g/dL Hct 17.5 L (37.5-50.1) % Plt Count 64 L (140-400) K/mcL Neutrophils # 5.5 (1.6-8.9) K/mcL BMP 10/15/16 03:15 Sodium 135 L Potassium 4.1 Chloride 101 Carbon Dioxide 24 BUN 78 H Creatinine 4.91 H Glucose 85 Calcium 7.6 L - VTE Documentation of Mechanical Device: Graduated compression elastic hosiery Consult Discharge Plan - Plan Referrals: Jeffy Guerra MD [Primary Care Provider] -
--- NOTE | 2016-10-15 16:49 | Nephrology Progress Note ---
Date of Encounter: 10/15/16 Time of Encounter: 14:30 - Assessment and Plan (1) Acute on chronic kidney failure Current Visit: No Status: Acute Renal function continues to worsen in the setting of probable ATN and anemia, so he will need HD today for clearance and UF. His does not tolerate much UF per treatment, so I will reduce the ordered 3K today to 1-1.5kg. Edema/anasarca: will assess for UF tomorrow (Saturday) as well. Anemia: Hgb dropping today as well, so I suspect there may be a multifactorial process and may not just be related to his CKD. Will add retic count, LDH, haptoglobin, FOBT. Consider ? noncontrast CT abd/pelvis if he continues to drop his H/H Follow a renal protective strategy to help encourage renal recover: dose Rx by GFR, adequate water intake, avoid Hypotension. Thank you (2) Anemia in chronic illness Current Visit: Yes Status: Chronic Goal Hgb is 10-11 in the setting of CKD. I would added EPO but given his Cancer hx, will hold off. PRBCs were ordered and I will sync with HD today. (3) Edema Current Visit: No Status: Chronic HD for fluid removal. See above comments about possible UF tomorrow. Qualifiers: Edema type: generalized Qualified Code(s): R60.1 - Generalized edema Subjective Principal diagnosis: DRU on CKD Interval history: Pt was seen/examined earlier today. He reported having passed a BM and did not affirm any visible blood on/in stools. His was at his bedside. He asked about the cause of his anemia. Objective - Vital Signs Vital signs: Vital Signs Temp Pulse Resp BP Pulse Ox 10/15/16 16:10 97.5 F L 84 14 106/55 10/15/16 15:52 97.3 F L 82 14 119/58 10/15/16 15:37 98.5 F 85 14 115/56 10/15/16 15:25 97.4 F L 84 16 118/60 10/15/16 15:10 98.3 F 86 14 105/56 10/15/16 14:55 97.7 F 83 16 108/59 100 10/15/16 11:46 98.6 F 79 14 114/68 100 10/15/16 09:20 98 10/15/16 07:34 97.5 F L 82 14 117/66 98 10/15/16 04:17 97.6 F 88 18 142/69 98 10/15/16 00:33 97.9 F 80 18 112/72 96 10/14/16 20:53 97.7 F 96 18 155/67 99 Intake and Output 10/15/16 10/15/16 10/15/16 07:59 15:59 23:59 Intake Total 1530 / 1530 350 / 350 Output Total 400 / 400 Balance 1130 / 1130 350 / 350 Intake: Oral 480 / 480 Blood Product 1050 / 1050 350 / 350 Rbcs Leuko Poor As-1 350 / 350 350 / 350 Unit [id number] Rbcs Leuko Poor As-1 700 / 700 Unit [id number] Output: Urine 400 / 400 Other: Meal Lunch Percent of Meal Consumed 75% Stool Size Large Stool Consistency formed Stool Color Brown Weight 117.48 kg Blood Glucose* 87 Patient Weight 10/15/16 23:59 Weight 117.48 kg - General Appearance General appearance: Present: well-developed, obese, chronically ill, fatigue, frail EENT: Present: ATNC, PERRL, mucous membranes dry Neck: Present: supple Respiratory: Present: course breath sounds Cardiology: Present: edema (1-2+ pitting edema at pretibials b/l ), regular rate , regular rhythm, normal S1, normal S2 Dialysis Vascular Access: Venous Catheter Additional Comments: RIJ temporary HD catheter appears C/D/I. Gastrointestinal: Present: normoactive bowel sounds, no tenderness, no guarding Integumentary: Present: no rash, warm and dry Neurologic: Present: no focal deficit, no asterixis, alert and oriented x3 Musculoskeletal: Present: no deformities, no erythema, no cyanosis Psychiatric: Present: mood/affect appropriate, cooperative - Lab 10/15/16 03:15 10/15/16 03:15 Most recent lab results Calcium 7.6 mg/dL (8.6-10.8) L 10/15/16 03:15 Phosphorus 5.1 mg/dL (2.3-4.7) H 10/15/16 03:15 Magnesium 1.7 mg/dL (1.6-2.6) 10/15/16 03:15 - VTE Documentation of Mechanical Device: Graduated compression elastic hosiery Consult Discharge Plan - Plan Referrals: Jeffy Guerra MD [Primary Care Provider] - 10/23/16 10:00 am
[2016-10-15] MEDS: *HR* LORazepam 1 MG TABLET PO PRN (18:41)
[2016-10-15] MEDS: Insulin DETEMIR 100 UNIT/ML X5UNITS SQ SCH (21:56)
[2016-10-15] MEDS ORDERED: Vancomycin 1,000 MG in D5% in Water 250 ML IVPB ONE (23:00)
[2016-10-16] MEDS: Piperacillin/Tazobactam 3.375 GM in D5% in Water (Mini-Bag+) 100 ML IVPB SCH ×2 (04:04→15:21)
[2016-10-16 04:31] LABS: Basophils % 0.2 %; Eosinophils % 0.2 %; Lymphocytes % 3.9 %
[2016-10-16 04:33] LABS: Hemoglobin 7.1 g/dL (12.9-16.9); Immature Granulocytes % 1.4 % (0-4); Immature Platelets 5.8 % (1.1-6.1); Immature Reticulocyte % 11.9 % (11.0-38.0); Lymphocytes # 0.2 K/mcL (0.6-4.6); Mean Corpuscular HGB Conc 32.3 g/dL (31.6-35.5); Mean Corpuscular Hemoglobin 29.3 pg (28.0-33.3); Mean Corpuscular Volume 90.9 fL (83.0-100.0); Mean Platelet Volume 10.8 fL (9.4-12.4); Monocytes # 0.4 K/mcL (0.0-1.3); Monocytes % 7.4 %; Neutrophils # 4.3 K/mcL (1.6-8.9); Red Blood Count 2.42 M/mcL (4.19-5.50); Red Cell Distribution Width 17.4 % (11.5-14.5); Retculocyte # 0.04 M/mcL (0.05-0.10); Reticulocyte % 1.5 % (1.6-2.8); Segmented Neutrophils % 86.9 %
[2016-10-16 04:35] LABS: Platelet Count 65 K/mcL (140-400)
[2016-10-16 04:46] LABS: Calcium 7.7 mg/dL (8.6-10.8); Magnesium 1.6 mg/dL (1.6-2.6); Phosphorous 2.7 mg/dL (2.3-4.7)
[2016-10-16 04:55] LABS: Platelet Estimate Decreased (Normal)
[2016-10-16 04:56] LABS: Anisocytosis 1+ (Not Present)
[2016-10-16] MEDS ORDERED: Aminoglycoside Consult 1 EACH MC ONE (08:04)
[2016-10-16] MEDS: Sucralfate 1 GM TABLET PO SCH ×2 (08:19→20:31)
[2016-10-16] MEDS: Cholecalciferol (D-3) 1,000 UNIT TABLET PO SCH (08:19)
[2016-10-16] MEDS: Nicotine 14 MG PATCH.TD24 TD SCH (08:19)
[2016-10-16] MEDS: Insulin LISPRO 300 UNITS/3 ML VIAL SQ SCH ×7 (08:22→20:31)
--- NOTE | 2016-10-16 08:36 | Nephrology Progress Note ---
Date of Encounter: 10/16/16 Time of Encounter: 10:15 - Assessment and Plan (1) Acute on chronic kidney failure Current Visit: No Status: Acute Nonoliguric DRU on CKD with probable etiology at this point being ATN. Status post HD yesterday (Saturday), and biochemically stable today, so will hold off on [employer] today, but will reassess daily for intermittent HD needs. Anemia persists: I orderd a FOBT and LDH/Retic Counts (these latter tests are both elevated). I'll defer to the pirmary team but consider consulting Hematology given the elevated LDH and Retic count. I called the floor RN to see if the FOBT has been peformed yet, but this still seems to be pending. Edema/anasarca: will resume diuretics today (since I'm not dialyzing him today). Will reassess renal function in AM to determine if further dialysis is indicated. Constipation: he asked me to provide a stronger laxative. Will add lactulose x1. Follow a renal protective strategy to help encourage renal recover: dose Rx by GFR, adequate water intake, avoid Hypotension. Thank you (2) Anemia in chronic illness Current Visit: Yes Status: Chronic See above Goal Hgb is 10-11 in the setting of CKD. I would added EPO but given his Cancer hx, will hold off. (3) Edema Current Visit: No Status: Chronic HD for fluid removal. Diuretics today. Qualifiers: Edema type: generalized Qualified Code(s): R60.1 - Generalized edema Subjective Principal diagnosis: DRU on CKD Interval history: Pt was s/e earlier today. He reported having constipation and had a rough night with small liquid stools on his bed, he said. I later spoke to the charge nurse about this as well. We discussed his labs, meds, vitals and kidney function/ dialysis. Objective - Vital Signs Vital signs: Vital Signs Temp Pulse Resp BP Pulse Ox 10/16/16 05:08 97.6 F 96 18 127/73 96 10/16/16 00:48 97.9 F 95 20 107/60 99 10/15/16 21:18 97.6 F 98 20 114/68 97 10/15/16 17:50 97.5 F L 14 123/66 10/15/16 17:45 114/58 10/15/16 17:30 123/64 10/15/16 17:15 115/59 10/15/16 17:00 109/54 10/15/16 16:45 115/52 10/15/16 16:30 105/52 10/15/16 16:15 110/53 10/15/16 16:10 97.5 F L 84 14 106/55 10/15/16 16:00 108/56 10/15/16 15:52 97.3 F L 82 14 119/58 10/15/16 15:45 111/57 10/15/16 15:37 98.5 F 85 14 115/56 10/15/16 15:30 124/61 10/15/16 15:25 97.4 F L 84 16 118/60 10/15/16 15:15 113/58 10/15/16 15:10 98.3 F 86 14 105/56 10/15/16 15:00 116/62 10/15/16 14:55 97.7 F 83 16 108/59 100 10/15/16 14:45 97.7 F 16 107/56 10/15/16 11:46 98.6 F 79 14 114/68 100 10/15/16 09:20 98 Intake and Output 10/15/16 10/16/16 10/16/16 23:59 07:59 15:59 Intake Total 750 / 750 Output Total 2975 / 2975 0 / 0 Balance -2225 / -2225 0 / 0 Intake: Oral 400 / 400 Blood Product 350 / 350 Rbcs Leuko Poor As-1 350 / 350 Unit [id number] Output: Urine 175 / 175 0 / 0 Total Dialysis Output 2800 / 2800 Other: Weight 115.439 kg Blood Glucose* 170 Hemodialysis Net Fluid 1500 Removed (mL) Patient Weight 10/16/16 23:59 Weight 115.439 kg - General Appearance General appearance: Present: well-developed, chronically ill, fatigue, frail EENT: Present: ATNC, PERRL, mucous membranes moist Neck: Present: supple Respiratory: Present: clear Cardiology: Present: edema, normal S1, normal S2 Dialysis Vascular Access: Venous Catheter ([facility] temporary HD catheter was C/D/I) Gastrointestinal: Present: normoactive bowel sounds, no tenderness, obese, distended Integumentary: Present: warm and dry Neurologic: Present: no focal deficit, no asterixis, alert and oriented x3 Musculoskeletal: Present: no deformities, no clubbing Psychiatric: Present: mood/affect appropriate, cooperative - Lab 10/16/16 04:10 10/16/16 04:10 Most recent lab results Calcium 7.7 mg/dL (8.6-10.8) L 10/16/16 04:10 Phosphorus 2.7 mg/dL (2.3-4.7) 10/16/16 04:10 Magnesium 1.6 mg/dL (1.6-2.6) 10/16/16 04:10 - VTE Documentation of Mechanical Device: Graduated compression elastic hosiery Consult Discharge Plan - Plan Referrals: Jeffy Guerra MD [Primary Care Provider] - 10/23/16 10:00 am
[2016-10-16] MEDS: Bumetanide 1 MG TABLET PO SCH (09:22)
[2016-10-16] MEDS: Miconazole w/zinc oxide&karaya 92 APPL/92 GM TUBE TP SCH ×2 (12:59→16:28)
[2016-10-16] MEDS ORDERED: MOM Conc 10 ML UD.LIQ PO PRN (12:59)
[2016-10-16] MEDS: Sennosides/Docusate Sodium TABLET PO SCH ×2 (13:46→20:31)
--- NOTE | 2016-10-16 14:25 | Internal Med Progress Note ---
Date of Encounter: 10/16/16 Time of Encounter: 14:23 - Assessment and plan (1) Infection of PEG site Current Visit: Yes Status: Acute Assessment and plan: Does not appear infected at this time. Continue IV Zosyn and hold IV vancomycin for now as there are no wound cultures. Blood cultures negative. Patient has no fever, leukocytosis or tenderness at the site. (2) Acute on chronic renal failure Current Visit: Yes Status: Acute Assessment and plan: Nephrology consult appreciated. Patient will likely require temporary hemodialysis, received temporary dialysis catheter and underwent one session of hemodialysis. Next session tomorrow. (3) Anemia Current Visit: Yes Status: Acute Assessment and plan: Acute on chronic anemia related to renal failure, chemotherapy for underlying esophageal cancer. To rule out upper GI bleed from the base of facial mass versus hemolytic anemia. Stool occult blood test is pending due to constipation. Serum LDH noted to be elevated with normal reticulocyte count, serum haptoglobin pending. Received 4 units of PRBC during this admission. Continue to monitor hemoglobin, to discuss with hematology in the event of further drop. Avoid medical anticoagulation. Qualifiers: Anemia type: other cause Other causes of anemia: chronic disease, neoplastic Qualified Code(s): D63.0 - Anemia in neoplastic disease (4) Insulin dependent diabetes mellitus Current Visit: Yes Status: Chronic Assessment and plan: Continue Accu-Chek blood glucose monitoring. Basal bolus insulin regimen. Diabetic diet. (5) Atrial fibrillation Current Visit: Yes Status: Chronic Assessment and plan: Not on long-term anticoagulation due to history of GI bleed and current anemia. Qualifiers: Atrial fibrillation type: paroxysmal Qualified Code(s): I48.0 - Paroxysmal atrial fibrillation (6) CKD (chronic kidney disease) stage 4, GFR 15-29 ml/min Current Visit: Yes Status: Chronic (7) COPD (chronic obstructive pulmonary disease) Current Visit: Yes Status: Chronic Qualifiers: COPD type: unspecified COPD Qualified Code(s): J44.9 - Chronic obstructive pulmonary disease, unspecified (8) Esophageal adenocarcinoma Current Visit: Yes Status: Chronic Assessment and plan: Follows with oncology as outpatient, receives alternate week chemotherapy. - Subjective Interval history: Reports generalized weakness and fatigue, improving. No nausea or vomiting. Concerned about severe constipation for the last 10 days. Not responding to Colace, will add senna and milk of magnesia today. No hematemesis. - Constitutional Vitals: Temp Pulse Resp BP Pulse Ox 97.7 F 94 17 122/72 98 10/16/16 11:59 10/16/16 11:59 10/16/16 11:59 10/16/16 11:59 10/16/16 11:59 General appearance: Present: A&O X 3, obese, answers questions appropriately - Head Head exam: Present: atraumatic, normocephalic - Neck Neck exam general surgery: Present: supple, trachea midline. Absent: lymphadenopathy - Respiratory Respiratory exam: Present: CTAB (Bilaterally anterolaterally). Absent: accessory muscle use, rales, rhonchi, wheezes - Cardiovascular Cardiovascular exam: Present: RRR, +S1, +S2. Absent: diastolic murmur, gallop, rubs, systolic murmur - GI/Abdominal GI/Abdominal exam: Present: normal bowel sounds, soft (Left upper quadrant- status post PEG tube removal, wound packed with Iodoform strips, minimal surrounding erythema, no foul-smelling discharge or tenderness), no peritoneal signs. Absent: distended, tenderness - Extremities Exam Extremities exam: Present: warm, radial pulses palpable and symetrical. Absent : calf tenderness, cyanotic, pedal edema - Neurological Exam Neurological exam: Present: CN II-XII intact, oriented X3, no focal deficits. Absent: pronater drift, facial droop, speech deficit - Skin Skin exam: Present: dry, intact, pallor Internal Medicine: Result - Labs CBC & Chem 7: 10/16/16 04:10 10/16/16 04:10 Labs: Short CBC 10/16/16 Range/Units 04:10 WBC 4.9 (4.3-11.1) K/mcL Hgb 7.1 L D (12.9-16.9) g/dL Hct 22.0 L (37.5-50.1) % Plt Count 65 L (140-400) K/mcL Neutrophils # 4.3 (1.6-8.9) K/mcL BMP 10/16/16 04:10 Sodium 138 Potassium 4.0 Chloride 105 Carbon Dioxide 27 BUN 41 H D Creatinine 3.39 H Glucose 135 H Calcium 7.7 L - VTE Documentation of Mechanical Device: Graduated compression elastic hosiery Consult Discharge Plan - Plan Referrals: Jeffy Guerra MD [Primary Care Provider] - 10/23/16 10:00 am
--- NOTE | 2016-10-16 16:19 | Oncology Inp Progress Note ---
<Aurelia Watts E - Last Filed: 10/16/16 16:17> Date of Encounter: 10/16/16 Time of Encounter: 14:30 (1) Anemia Current Visit: Yes Status: Acute Qualifiers: Anemia type: other cause Other causes of anemia: chronic disease, neoplastic Qualified Code(s): D63.0 - Anemia in neoplastic disease (2) Anemia in chronic illness Current Visit: Yes Status: Chronic Assessment and plan: HGB has increased to 7.1 with transfusion of packed cells. On 2016 hemoglobin was 5.5. Platelets are also decreased at 65,000. His last chemotherapy was given on 10/10/2016. At that time he received Taxol and ramucirumab. These agents can contribute to anemia as well as, renal failure and chronic illness. LDH increased however retic count is low. Haptoglobin pending. (3) Esophageal adenocarcinoma Current Visit: Yes Status: Chronic Assessment and plan: Last treatment was on 10/10/16. He denies problems swallowing. PEG no longer in place. I examined this patient and my medical decision-making was reviewed with the MIS MANAGER/PA/Advanced Practice Nurse/Resident Physician. I agree with the documented findings, disposition and treatment plan as described except to the extent set forth below. Oncology: Subj Interval history: The patient's major concern and complaint today is severe constipation. He states that his bowels have not moved for about 10 days. He was given laxatives today. He denies any difficulty swallowing food however he states he does have a decreased appetite. He does report feeling a bit stronger since he had transfusion. - Constitutional Vitals: Vital Signs Temp Pulse Resp BP Pulse Ox 10/16/16 11:59 97.7 F 94 17 122/72 98 10/16/16 08:28 98.4 F 101 16 102/66 95 10/16/16 05:08 97.6 F 96 18 127/73 96 10/16/16 00:48 97.9 F 95 20 107/60 99 10/15/16 21:18 97.6 F 98 20 114/68 97 10/15/16 17:50 97.5 F L 14 123/66 10/15/16 17:45 114/58 10/15/16 17:30 123/64 10/15/16 17:15 115/59 10/15/16 17:00 109/54 10/15/16 16:45 115/52 10/15/16 16:30 105/52 Intake and Output 10/16/16 10/16/16 10/16/16 07:59 15:59 23:59 Intake Total 820 / 820 Output Total 0 / 0 Balance 0 / 0 820 / 820 Intake: IV Fluids 100 / 100 Zosyn 3.375 GM In 100 / 100 Dextrose 5% (Minibag+) 100 ML 100 ML @ 25 mls/hr IVPB Q12H [facility] Rx#: [id number] Oral 720 / 720 Output: Urine 0 / 0 Other: Meal Lunch Percent of Meal Consumed 100% Weight 115.439 kg Blood Glucose* 116 Patient Weight 10/16/16 23:59 Weight 115.439 kg General appearance: cooperative, no acute distress, obese - Head Head exam: Present: atraumatic, normal inspection - Neck Neck exam: Present: normal inspection (Temporary dialysis catheter in right side of neck) - Respiratory Respiratory exam: Present: CTAB - Cardiovascular Cardiovascular exam: Present: RRR - GI/Abdominal GI/Abdominal exam: Present: distended (Carole sounds present), soft (Does have a dressing on the left side the abdomen from a PEG tube that he accidentally pulled out I did not remove the dressing for evaluation) - Extremities Exam Extremities exam: Present: normal capillary refill, pedal edema (Edema present in lower extremities with a brownish discoloration of the skin in the lower legs ) - Psychiatric Psychiatric exam: Present: normal affect, normal mood Oncology: Obj Data - Labs CBC & Chem 7: 10/16/16 04:10 10/16/16 04:10 Labs: Laboratory Results - last 24 hr 10/15/16 10/15/16 10/15/16 11:49 15:43 20:55 WBC RBC Hgb Hct MCV MCH MCHC RDW Plt Count MPV Reticulocyte # Immature Gran % Seg Neutrophils % Lymphocytes % Monocytes % Eosinophils % Basophils % Neutrophils # Lymphocytes # Monocytes # Eosinophils # Basophils # Platelet Estimate Immature Plt Fraction Anisocytosis Percent Retic Immature Retic Fraction Retic Hgb Equivalent Sodium Potassium Chloride Carbon Dioxide BUN Creatinine Est GFR ( Amer) Est GFR (Non-Af Amer) BUN/Creatinine Ratio Glucose POC Glucose 131 H 87 Calculated Osmolality Calcium Phosphorus Magnesium Lactate Dehydrogenase Vancomycin Trough 12.9 10/15/16 10/16/16 10/16/16 21:21 04:10 04:10 WBC 4.9 RBC 2.42 L Hgb 7.1 L D Hct 22.0 L MCV 90.9 MCH 29.3 MCHC 32.3 RDW 17.4 H Plt Count 65 L MPV 10.8 Reticulocyte # 0.04 L Immature Gran % 1.4 Seg Neutrophils % 86.9 Lymphocytes % 3.9 Monocytes % 7.4 Eosinophils % 0.2 Basophils % 0.2 Neutrophils # 4.3 Lymphocytes # 0.2 L Monocytes # 0.4 Eosinophils # 0.0 Basophils # 0.0 Platelet Estimate Decreased L Immature Plt Fraction 5.8 Anisocytosis 1+ A Percent Retic 1.5 L Immature Retic Fraction 11.9 Retic Hgb Equivalent 41.5 H Sodium 138 Potassium 4.0 Chloride 105 Carbon Dioxide 27 BUN 41 H D Creatinine 3.39 H Est GFR ( Amer) 23 L Est GFR (Non-Af Amer) 19 L BUN/Creatinine Ratio 12 Glucose 135 H POC Glucose 170 H Calculated Osmolality 298 Calcium 7.7 L Phosphorus 2.7 Magnesium 1.6 Lactate Dehydrogenase 464 H Vancomycin Trough 10/16/16 08:20 WBC RBC Hgb Hct MCV MCH MCHC RDW Plt Count MPV Reticulocyte # Immature Gran % Seg Neutrophils % Lymphocytes % Monocytes % Eosinophils % Basophils % Neutrophils # Lymphocytes # Monocytes # Eosinophils # Basophils # Platelet Estimate Immature Plt Fraction Anisocytosis Percent Retic Immature Retic Fraction Retic Hgb Equivalent Sodium Potassium Chloride Carbon Dioxide BUN Creatinine Est GFR ( Amer) Est GFR (Non-Af Amer) BUN/Creatinine Ratio Glucose POC Glucose 186 H Calculated Osmolality Calcium Phosphorus Magnesium Lactate Dehydrogenase Vancomycin Trough Hemoglobin 7.1 after receiving blood transfusion, platelets 65,000. Haptoglobin is pending. LDH is elevated and will retake count is decreased. Consult Discharge Plan - Plan Referrals: Jeffy Guerra MD [Primary Care Provider] - 10/23/16 10:00 am <Devi Riojas S - Last Filed: 10/17/16 17:07> - Constitutional Vitals: Vital Signs Temp Pulse Resp BP Pulse Ox 10/17/16 16:11 97.6 F 95 16 108/59 96 10/17/16 14:15 20 115/57 10/17/16 14:00 102/65 10/17/16 13:45 111/70 01/18/17 13:30 100/58 10/17/16 13:15 101/64 10/17/16 13:00 108/58 10/17/16 12:45 103/65 10/17/16 12:30 117/63 10/17/16 12:15 113/60 10/17/16 12:00 111/63 10/17/16 11:45 111/63 10/17/16 11:30 113/60 10/17/16 11:15 116/67 10/17/16 08:23 97.6 F 89 16 119/70 99 10/17/16 04:24 97.8 F 99 18 103/63 96 10/16/16 23:56 97.7 F 87 16 95/54 97 10/16/16 19:32 98.5 F 114 18 103/66 98 Intake and Output 10/17/16 10/17/16 10/17/16 07:59 15:59 23:59 Intake Total 600 / 600 1180 / 1180 Output Total 2100 / 2100 Balance 600 / 600 -920 / -920 Intake: IV Fluids 100 / 100 Zosyn 3.375 GM In 100 / 100 Dextrose 5% (Minibag+) 100 ML 100 ML @ 25 mls/hr IVPB Q12H [facility] Rx#: [id number] Oral 600 / 600 480 / 480 Intake, Rinseback and 600 / 600 Flushes Output: Total Dialysis Output 2100 / 2100 Other: Meal Breakfast Percent of Meal Consumed 75% Stool Size Copious Stool Consistency loose Stool Color Brown # Bowel Movements 1 Weight 117.1 kg Blood Glucose* 120 154 Hemodialysis Net Fluid 1500 Removed (mL) Patient Weight 10/17/16 23:59 Weight 117.1 kg Oncology: Obj Data - Labs CBC & Chem 7: 10/17/16 10:00 10/17/16 04:40 Labs: Laboratory Results - last 24 hr 10/16/16 10/16/16 10/16/16 16:36 19:30 23:30 WBC RBC Hgb Hct MCV MCH MCHC RDW Plt Count MPV Immature Gran % Seg Neutrophils % Lymphocytes % Monocytes % Eosinophils % Basophils % Neutrophils # Lymphocytes # Monocytes # Eosinophils # Basophils # Nucleated RBCs/100 WBC Platelet Estimate Immature Plt Fraction Basophilic Stippling Sodium Potassium Chloride Carbon Dioxide BUN Creatinine Est GFR ( Amer) Est GFR (Non-Af Amer) BUN/Creatinine Ratio Glucose POC Glucose 116 H 135 H Calculated Osmolality Calcium Phosphorus Stool Occult Blood Positive A Vancomycin Trough 10/17/16 10/17/16 10/17/16 04:40 04:40 08:25 WBC RBC Hgb Hct MCV MCH MCHC RDW Plt Count MPV Immature Gran % Seg Neutrophils % Lymphocytes % Monocytes % Eosinophils % Basophils % Neutrophils # Lymphocytes # Monocytes # Eosinophils # Basophils # Nucleated RBCs/100 WBC Platelet Estimate Immature Plt Fraction Basophilic Stippling Sodium 136 Potassium 3.8 Chloride 102 Carbon Dioxide 25 BUN 53 H D Creatinine 4.18 H Est GFR ( Amer) 18 L Est GFR (Non-Af Amer) 15 L BUN/Creatinine Ratio 13 Glucose 144 H POC Glucose 132 H Calculated Osmolality 299 Calcium 7.8 L Phosphorus 2.1 L Stool Occult Blood Vancomycin Trough 21.3 H* 10/17/16 10/17/16 10/17/16 10:00 12:19 16:15 WBC 4.4 RBC 2.22 L Hgb 6.6 L Hct 20.3 L MCV 91.4 MCH 29.7 MCHC 32.5 RDW 17.4 H Plt Count 60 L MPV 12.0 Immature Gran % 0.9 Seg Neutrophils % 86.4 Lymphocytes % 3.6 Monocytes % 8.4 Eosinophils % 0.5 Basophils % 0.2 Neutrophils # 3.8 Lymphocytes # 0.2 L Monocytes # 0.4 Eosinophils # 0.0 Basophils # 0.0 Nucleated RBCs/100 WBC 0.7 H Platelet Estimate Marked Decrease L Immature Plt Fraction 6.4 H Basophilic Stippling 1+ A Sodium Potassium Chloride Carbon Dioxide BUN Creatinine Est GFR ( Amer) Est GFR (Non-Af Amer) BUN/Creatinine Ratio Glucose POC Glucose 120 H 154 H Calculated Osmolality Calcium Phosphorus Stool Occult Blood Vancomycin Trough
[2016-10-16] MEDS ORDERED: Lactulose Oral Soln 20 GM/30 ML UDC PO ONE (17:34)
[2016-10-16] MEDS: Insulin DETEMIR 100 UNIT/ML X5UNITS SQ SCH (20:31)
[2016-10-16] MEDS: *HR* LORazepam 1 MG TABLET PO PRN (20:35)
[2016-10-17] MEDS: Piperacillin/Tazobactam 3.375 GM in D5% in Water (Mini-Bag+) 100 ML IVPB SCH ×2 (04:30→15:41)
[2016-10-17] MEDS: Miconazole w/zinc oxide&karaya 92 APPL/92 GM TUBE TP SCH (04:39)
[2016-10-17] MEDS: Cholecalciferol (D-3) 1,000 UNIT TABLET PO SCH ×2 (04:47→08:11)
[2016-10-17] MEDS: Sucralfate 1 GM TABLET PO SCH ×3 (04:47→20:31)
[2016-10-17 05:14] LABS: Calcium 7.8 mg/dL (8.6-10.8); Phosphorous 2.1 mg/dL (2.3-4.7); Potassium 3.8 mEq/L (3.5-4.5)
[2016-10-17] MEDS: Nicotine 14 MG PATCH.TD24 TD SCH (08:10)
[2016-10-17] MEDS: Sennosides/Docusate Sodium TABLET PO SCH ×2 (08:12→22:13)
[2016-10-17] MEDS: Insulin LISPRO 300 UNITS/3 ML VIAL SQ SCH ×7 (08:43→22:03)
[2016-10-17] MEDS ORDERED: 0.9 % Sodium Chloride 250 ML IV PRN (10:00)
[2016-10-17 10:06] LABS: Basophils % 0.2 %; Eosinophils % 0.5 %; Immature Granulocytes % 0.9 % (0-4); Mean Corpuscular Hemoglobin 29.7 pg (28.0-33.3)
[2016-10-17 10:08] LABS: Hematocrit 20.3 % (37.5-50.1); Hemoglobin 6.6 g/dL (12.9-16.9); Immature Platelets 6.4 % (1.1-6.1); Lymphocytes # 0.2 K/mcL (0.6-4.6); Lymphocytes % 3.6 %; Mean Corpuscular HGB Conc 32.5 g/dL (31.6-35.5); Mean Corpuscular Volume 91.4 fL (83.0-100.0); Monocytes # 0.4 K/mcL (0.0-1.3); Monocytes % 8.4 %; Neutrophils # 3.8 K/mcL (1.6-8.9); Nucleated Red Blood Cells 0.7 /100 WBC (0); Red Blood Count 2.22 M/mcL (4.19-5.50); Red Cell Distribution Width 17.4 % (11.5-14.5); Segmented Neutrophils % 86.4 %
[2016-10-17 10:09] LABS: Platelet Count 60 K/mcL (140-400)
--- NOTE | 2016-10-17 10:21 | Internal Med Progress Note ---
Date of Encounter: 10/17/16 Time of Encounter: 10:19 - Assessment and plan (1) Infection of PEG site Current Visit: Yes Status: Acute Assessment and plan: Does not appear infected at this time. s/p PEG tube removal; Continue IV Zosyn for now; no wound cultures available. Blood cultures negative. Patient has no fever, leukocytosis or tenderness at the site. (2) Acute on chronic renal failure Current Visit: Yes Status: Acute Assessment and plan: Nephrology f/up appreciated. Patient likely has ATN and currently continues to require regular hemodialysis sessions, second session today. Nephrology has discussed grave prognosis with the patient given his underlying metastatic cancer, which would be a relative contraindication for long-term hemodialysis. Continue to monitor renal function closely. (3) Anemia Current Visit: Yes Status: Acute Assessment and plan: Acute on chronic anemia related to renal failure, chemotherapy for underlying esophageal cancer. Follow up today's CBC. To rule out upper GI bleed from the esophageal mass versus hemolytic anemia. Stool occult blood test positive. Serum LDH noted to be elevated with low reticulocyte count, serum haptoglobin pending. Received 4 units of PRBC during this admission. Continue to monitor hemoglobin, to discuss with hematology in the event of further drop. Avoid medical anticoagulation. Qualifiers: Anemia type: other cause Other causes of anemia: chronic disease, neoplastic Qualified Code(s): D63.0 - Anemia in neoplastic disease (4) Insulin dependent diabetes mellitus Current Visit: Yes Status: Chronic Assessment and plan: Continue Accu-Chek blood glucose monitoring. Basal bolus insulin regimen. Diabetic diet. (5) Atrial fibrillation Current Visit: Yes Status: Chronic Assessment and plan: Not on long-term anticoagulation due to history of GI bleed and current anemia. Qualifiers: Atrial fibrillation type: paroxysmal Qualified Code(s): I48.0 - Paroxysmal atrial fibrillation (6) CKD (chronic kidney disease) stage 4, GFR 15-29 ml/min Current Visit: Yes Status: Chronic (7) COPD (chronic obstructive pulmonary disease) Current Visit: Yes Status: Chronic Qualifiers: COPD type: unspecified COPD Qualified Code(s): J44.9 - Chronic obstructive pulmonary disease, unspecified (8) Esophageal adenocarcinoma Current Visit: Yes Status: Chronic Assessment and plan: Follows with oncology as outpatient, receives alternate week chemotherapy. Review of records since his cancer diagnosis, as available. He was noted to be under hospice care previously but currently believes that his cancer is stable with a good prognosis, although he mentions that he does have liver and lung metastasis. - Subjective Interval history: Reports some generalized weakness; no nausea, vomiting, abdominal pain; glad to have had bowel movements yesterday after 10 days of constipation; noticed minimal bright red blood but thinks its due to straining and hard stool; - Constitutional Vitals: Temp Pulse Resp BP Pulse Ox 97.6 F 89 16 119/70 99 10/17/16 08:23 10/17/16 08:23 10/17/16 08:23 10/17/16 08:23 10/17/16 08:23 General appearance: Present: A&O X 3, obese, answers questions appropriately - Head Head exam: Present: atraumatic, normocephalic - Neck Neck exam general surgery: Present: supple, trachea midline. Absent: lymphadenopathy - Respiratory Respiratory exam: Present: CTAB. Absent: accessory muscle use, rales, rhonchi, wheezes Additional comments: right upper chest with chemo port in place; right IJ temporary HD catheter in place; - Cardiovascular Cardiovascular exam: Present: RRR, +S1, +S2. Absent: diastolic murmur, gallop, rubs, systolic murmur - GI/Abdominal GI/Abdominal exam: Present: normal bowel sounds, soft, no peritoneal signs. Absent: distended, tenderness - Extremities Exam Extremities exam: Present: full ROM, pedal edema, warm, radial pulses palpable and symetrical. Absent: calf tenderness, cyanotic - Neurological Exam Neurological exam: Present: CN II-XII intact, oriented X3, no focal deficits. Absent: pronater drift, facial droop, speech deficit - Skin Skin exam: Present: dry, intact Additional comments: stasis dermatitis B/L posterior legs Internal Medicine: Result - Labs CBC & Chem 7: 10/17/16 10:00 10/17/16 04:40 Labs: Short CBC 10/17/16 Range/Units 10:00 WBC 4.4 (4.3-11.1) K/mcL Hgb 6.6 L (12.9-16.9) g/dL Hct 20.3 L (37.5-50.1) % Plt Count 60 L (140-400) K/mcL BMP 10/17/16 04:40 Sodium 136 Potassium 3.8 Chloride 102 Carbon Dioxide 25 BUN 53 H D Creatinine 4.18 H Glucose 144 H Calcium 7.8 L - VTE Documentation of Mechanical Device: Graduated compression elastic hosiery Consult Discharge Plan - Plan Referrals: Jeffy Guerra MD [Primary Care Provider] - 10/23/16 10:00 am
[2016-10-17 10:34] LABS: Basophilic Stippling 1+ (Not Present); Platelet Estimate Marked Decrease (Normal)
[2016-10-17] MEDS: *HR* OxyCODONE Immed Rel 5 MG TABLET PO PRN (20:32)
[2016-10-17] MEDS: Insulin DETEMIR 100 UNIT/ML X5UNITS SQ SCH (22:09)
[2016-10-18] MEDS: *HR* LORazepam 1 MG TABLET PO PRN ×2 (04:06→21:08)
[2016-10-18] MEDS: Piperacillin/Tazobactam 3.375 GM in D5% in Water (Mini-Bag+) 100 ML IVPB SCH ×2 (04:08→16:16)
[2016-10-18] MEDS: Miconazole w/zinc oxide&karaya 92 APPL/92 GM TUBE TP SCH ×2 (04:09→11:24)
[2016-10-18 04:57] LABS: Calcium 7.5 mg/dL (8.6-10.8); Potassium 3.8 mEq/L (3.5-4.5)
[2016-10-18 05:04] LABS: Basophils % 0.3 %; Hemoglobin 6.1 g/dL (12.9-16.9)
[2016-10-18 05:06] LABS: Eosinophils % 0.9 %; Hematocrit 19.6 % (37.5-50.1); Immature Granulocytes % 1.5 % (0-4); Immature Platelets 8.6 % (1.1-6.1); Lymphocytes # 0.3 K/mcL (0.6-4.6); Lymphocytes % 7.4 %; Mean Corpuscular HGB Conc 31.1 g/dL (31.6-35.5); Mean Corpuscular Volume 93.3 fL (83.0-100.0); Mean Platelet Volume 12.7 fL (9.4-12.4); Monocytes # 0.5 K/mcL (0.0-1.3); Monocytes % 15.7 %; Neutrophils # 2.5 K/mcL (1.6-8.9); Nucleated Red Blood Cells 2.4 /100 WBC (0); Red Cell Distribution Width 17.6 % (11.5-14.5); Segmented Neutrophils % 74.2 %
[2016-10-18 05:25] LABS: Platelet Count 65 K/mcL (140-400)
[2016-10-18] MEDS: Insulin LISPRO 300 UNITS/3 ML VIAL SQ SCH ×7 (07:23→20:53)
[2016-10-18] MEDS: Sucralfate 1 GM TABLET PO SCH ×2 (07:34→20:56)
[2016-10-18] MEDS: Cholecalciferol (D-3) 1,000 UNIT TABLET PO SCH (07:35)
[2016-10-18] MEDS: Nicotine 14 MG PATCH.TD24 TD SCH (07:35)
[2016-10-18] MEDS: Sennosides/Docusate Sodium TABLET PO SCH ×2 (07:35→21:08)
--- NOTE | 2016-10-18 08:42 | Nephrology Progress Note ---
Date of Encounter: 10/17/16 Time of Encounter: 10:25 - Assessment and Plan (1) Acute on chronic kidney failure Current Visit: No Status: Acute Last HD was yesterday. Will hold off on HD today, but I recommend placement of a Permacath if he consents for chronic dialysis. Of note, I've had long conversations with him about his risks of chronic dialysis in the setting of advanced malignancy. Ideally, I'd have him be NPO tonight for a Permacath to be placed in the AM with HD to follow... However, he clearly has a persistly worsening H/H, very likely a GIB related to his know esophageal CA. Yesterday, his CBC was not drawn timely -- though ordered the day before. In reviewing the trend of his H/H, it continues to fall. Transfusion parameters as per primary. Consider consulting GI. Since his H/H is not stable, I recommend first managing this aspect of his care before placing a Permacath. I'll resume his diuretics today, since I'm not dialyzing and I suspect he'll need another transfusion. He could be progressing toward ESRD and may need a Permacath by week's end if not improving. Constipation: improving s/p lactulose x1 on Saturday. Follow a renal protective strategy to help encourage renal recover: dose Rx by GFR, adequate water intake, avoid Hypotension. Thank you (2) Anemia in chronic illness Current Visit: Yes Status: Chronic See above Goal Hgb is 10-11 in the setting of CKD. I would added EPO but given his Cancer hx, will hold off. DDx includes: blood loss, chemo-induced, renal disease, vs other. His CBC was pending in the AM and I asked his RN to call the lab to see why it had not yet been drawn. (3) Edema Current Visit: No Status: Chronic HD for fluid removal. Qualifiers: Edema type: generalized Qualified Code(s): R60.1 - Generalized edema Subjective Principal diagnosis: DRU on CKD Interval history: Pt was seen / examined. He did not affirm N/V/D but we discussed his constipation which appears to be improving s/p Lactulose. We had a long conversation about his renal function, anemia, and possible chronic dialysis, which would require a Permacath, and also I reviewed with him some of the life expectancy data for patients on chronic dialysis with concomitant malignancy. He voiced wanting to talk about these options with his . Objective - Vital Signs Vital signs: Vital Signs Temp Pulse Resp BP Pulse Ox 10/18/16 07:53 99 10/18/16 07:04 98.7 F 84 16 100/63 99 10/18/16 03:48 98.2 F 84 20 99/60 98 10/17/16 23:34 98.3 F 98 18 95/60 96 10/17/16 19:15 99.1 F 98 18 95/57 99 10/17/16 16:11 97.6 F 95 16 108/59 96 10/17/16 14:15 20 115/57 10/17/16 14:00 102/65 10/17/16 13:45 111/70 10/17/16 13:30 100/58 10/17/16 13:15 101/64 10/17/16 13:00 108/58 10/17/16 12:45 103/65 10/17/16 12:30 117/63 10/17/16 12:15 113/60 10/17/16 12:00 111/63 10/17/16 11:45 111/63 10/17/16 11:30 113/60 10/17/16 11:15 116/67 Intake and Output 10/17/16 10/18/16 10/18/16 23:59 07:59 15:59 Intake Total 220 / 220 240 / 240 Output Total 250 / 250 Balance -30 / -30 240 / 240 Intake: IV Fluids 100 / 100 Zosyn 3.375 GM In 100 / 100 Dextrose 5% (Minibag+) 100 ML 100 ML @ 25 mls/hr IVPB Q12H [facility] Rx#: [id number] Oral 120 / 120 240 / 240 Output: Urine 250 / 250 Other: Meal Breakfast Percent of Meal Consumed 90% # Voids 2 Blood Glucose* 170 110 - General Appearance Exam: General appearance: Present: well-developed, chronically ill, fatigue, frail EENT: Present: ATNC, PERRL, mucous membranes moist Neck: Present: supple Respiratory: Present: clear Cardiology: Present: edema, normal S1, normal S2 Dialysis Vascular Access: Venous Catheter (RIJ temporary HD catheter was C/D/I) Gastrointestinal: Present: normoactive bowel sounds, no tenderness, obese, distended Integumentary: Present: warm and dry Neurologic: Present: no focal deficit, no asterixis, alert and oriented x3 Musculoskeletal: Present: no deformities, no clubbing Psychiatric: Present: mood/affect appropriate, cooperative - Lab 10/18/16 04:30 10/18/16 04:30 Most recent lab results Calcium 7.5 mg/dL (8.6-10.8) L 10/18/16 04:30 Phosphorus 2.1 mg/dL (2.3-4.7) L 10/17/16 04:40 Magnesium 1.6 mg/dL (1.6-2.6) 10/16/16 04:10 - VTE Documentation of Mechanical Device: Graduated compression elastic hosiery Consult Discharge Plan - Plan Referrals: Jeffy Guerra MD [Primary Care Provider] - 10/23/16 10:00 am
--- NOTE | 2016-10-18 08:48 | Gastroenterology Consult Note ---
<Nyasia Ramirez - Last Filed: 10/18/16 11:18> Date of Encounter: 10/18/16 Time of Encounter: 11:05 - Assessment and plan (1) Acute on chronic renal failure Current Visit: Yes Status: Acute Assessment and plan: HD, nephrology managing. (2) Anemia Current Visit: Yes Status: Acute Assessment and plan: Baseline 9-10.Low 5.5, currently6.1 s/p 4 units PRBC. Patient reports recent history of dark/coffee ground emesis. EGD today to r/o esophagitis, gastritis, duodenitis, MW tear, varices, AVMs, oozing from mass. Qualifiers: Anemia type: other cause Other causes of anemia: chronic disease, neoplastic Qualified Code(s): D63.0 - Anemia in neoplastic disease (3) Infection of PEG site Current Visit: Yes Status: Acute Assessment and plan: PEG removed, wound is being packed - surgical management. (4) Esophageal adenocarcinoma Current Visit: Yes Status: Chronic Assessment and plan: Dx 08/2015 - Oncology management. Patient currently undergoing chemoradiation therapy. Metes reportedly to lung and liver. (5) Thrombocytopenia Current Visit: No Status: Chronic Assessment and plan: Plts 65. Thought to be 2ndary to chemotherapy. - Time Spent With Patient Total time spent is greater than 50% in coordination of care (as documented) at patient's floor/unit and/or counseling patient: less than 15 minutes GI History of Present Illness - Data of Consult Patient: known to practice within the last 3 years Consult date: 10/18/16 Requesting Physician: Tyra Tinajero MD - Consult Narrative Reason for consult: Anemia History of present illness: Mr. Carranza is a 56 year old male patient has extensive medical history which includes esophageal cancer (dx 08/2015, currently undergoing chemoradiation therapy), PEG tube placement, atrial fibrillation, COPD on 2 L nasal cannula, DM, HTN, HLD, CHF, JOSÉ MIGUEL. According to the patient, approximately a week ago he was attempting to get out of his chair when he accidentally pulled his PEG tube. Since then he has been experiencing some abdominal pain. He also complains of constipation going 10 days without a bowel movement at the time of his admission 10/11/16. The PEG tube was removed by Dr. Lynne, noting an abscess at the PEG insertion site upon admission. He denies any fevers chills, chest pain however he does have some nausea and vomiting and poor appetite which mostly occur after chemotherapy, which his last treatment was yesterday. According to the patient he has required multiple blood transfusions after chemotherapy with his most recent transfusion occurring approximately 2 weeks ago. He has been complaining of increased fatigue and general malaise and shortness of breath upon exertion requiring oxygen use. The patient's hemoglobin was 6.6 per ER records, oncology was notified and requested patient be admitted for PRBC transfusion. He denies any melena, hematochezia hemataemesis. His baseline is around 9-10, however, in recent months, patient has had multiple transfusions during the chemotherapy. Oncology and nephrology have consulted on this patient since his admission. He had a HD catheter placed and is now undergoing dialysis for worsening renal function. He has underlying thrombocytopenia which is thought to be secondary to chemotherapy. Patient admits recent history of coffee ground/dark emesis multiple times prior to admission. Colonoscopy: 08/2015 - [facility] - multiple tubular adenoma EGD: 11/2015 - [facility] - adenocarcinoma (no bleeding), duodenitis Past Med Surg Social Fam HX - Past Medical History Medical history: atrial fibrillation, cancer, cardiomyopathy, CHF, COPD, diabetes, hyperlipidemia, hypertension, malignancy, renal disease Psychiatric history: depression - Past Surgical History Surgical History: orthopedic, other, other - Social History Smoking Status: Current every day smoker Smokeless Tobacco Status: No Alcohol use: none Drug use: none - Family History Father Adopted: No Living Status: Still Living Hx Family Cardiac Disorders: Yes Hx Family Respiratory Disorders: No Hx Family Cancer: Yes (Prostate) Hx Family GI Disorders: No Hx Family Endocrine Disorder: No Hx Family Neuromuscular Disorders: No Hx Family Neurologic Disorders: No Hx Family HEENT Disorders: No Hx Family Autoimmune Disorders: No Mother Adopted: No Family Member Ethnicity: Non- Living Status: Still Living Hx Family Cardiac Disorders: Yes (chf) Hx Family Respiratory Disorders: Yes (copd) Hx Family GI Disorders: Yes (IBS) Hx Family Endocrine Disorder: Yes Hx Family Neuromuscular Disorders: No Hx Family Neurologic Disorders: No Hx Family HEENT Disorders: No Hx Family Autoimmune Disorders: No Brother Hx Family Cardiac Disorders: Yes (ND at age 49) - Gastrointestinal NSAID use: None Anticoagulation Use: None Number of BM Per Day: 1 Gastrointestinal: Present: coffee ground emesis - Constitutional Constitutional: fatigue - EENT Eyes: as per HPI Ears: Present: as per HPI Nose, mouth and throat: Present: as per HPI - Cardiovascular Cardiovascular ROS: Present: as per HPI - Respiratory Respiratory IM: Present: as per HPI - Neurological ROS Neurological GI: Present: dizziness, weakness - Hematologic/Lymphatic Hematologic/Lymphatic pediatric: Present: as per HPI - Musculoskeletal Musculoskeletal ROS GI: Present: as per HPI - Integumentary Integumentary GI: Present: as per HPI - Psychiatric ROS Psychiatric GI: Present: as per HPI - Endocrine Endocrine IM: Present: fatigue - Constitutional Vitals: Temp Pulse Resp BP Pulse Ox 98.7 F 84 16 100/63 99 10/18/16 07:04 10/18/16 07:04 10/18/16 07:04 10/18/16 07:04 10/18/16 07:53 General appearance: Present: cooperative, A&O X 3, no acute distress, answers questions appropriately Exam: chronically ill appearing. - Head Head exam: Present: atraumatic, normocephalic - Eye Eye exam: Present: normal appearance, sclera anicteric - ENT ENT exam: Present: mucous membranes moist - Neck Neck exam general surgery: Present: normal inspection, trachea midline - Respiratory Respiratory exam: Present: CTAB - Cardiovascular Cardiovascular exam: Present: RRR, +S1, +S2 - GI/Abdominal GI/Abdominal exam: Present: distended, soft, no peritoneal signs - Rectal Rectal exam: Present: deferred - Extremities Exam Extremities exam: Present: pedal edema Additional comments: L>R - Neurological Exam Neurological exam: Present: no focal deficits - Psychiatric Psychiatric exam: Present: normal affect, normal mood - Skin Skin exam: Present: dry, pallor, warm Results - Labs CBC & Chem 7: 10/18/16 04:30 10/18/16 04:30 Labs: Last Result Calcium 7.5 mg/dL (8.6-10.8) L 10/18/16 04:30 Iron 59 mcg/dL (65-175) L 10/11/16 10:08 % Saturation 22 % (20-55) 10/11/16 10:08 Transferrin 192 mg/dL (174-364) 10/11/16 10:08 Ferritin 221 ng/ml (22-275) 10/11/16 10:08 Vitamin B12 758 pg/mL (213-816) 10/12/16 03:50 Folate 8.2 ng/mL (7.0-31.4) 10/12/16 03:50 Stool Occult Blood Positive (Negative) A 10/16/16 23:30 Entire Visit Hgb 6.1 g/dL (12.9-16.9) L 10/18/16 04:30 Hct 19.6 % (37.5-50.1) L 10/18/16 04:30 Haptoglobin 114 mg/dL (30-200) 10/16/16 04:10 Ferritin 221 ng/ml (22-275) 10/11/16 10:08 Total Bilirubin 1.2 mg/dL (0.2-1.2) 10/11/16 10:05 AST 42 Units/L (5-34) H 10/11/16 10:05 ALT 31 Units/L (0-55) 10/11/16 10:05 Lipase 43 Units/L (8-78) 10/11/16 10:05 Folate 8.2 ng/mL (7.0-31.4) 10/12/16 03:50 Consult Discharge Plan - Plan Referrals: Jeffy Guerra MD [Primary Care Provider] - 10/23/16 10:00 am <Reinaldo Vences - Last Filed: 10/18/16 17:22> Time of Encounter: 14:00 - Time Spent With Patient Total time spent is greater than 50% in coordination of care (as documented) at patient's floor/unit and/or counseling patient: GI History of Present Illness - Data of Consult Requesting Physician: Tyra Tinajero MD - Consult Narrative History of present illness: Mr. Carranza is a 56 year old male - Constitutional Vitals: Temp Pulse Resp BP Pulse Ox 99.0 F 87 16 118/56 96 10/18/16 16:52 10/18/16 17:16 10/18/16 17:16 10/18/16 17:16 10/18/16 17:16 Results - Labs CBC & Chem 7: 10/18/16 04:30 10/18/16 04:30 Labs: Last Result Calcium 7.5 mg/dL (8.6-10.8) L 10/18/16 04:30 Iron 59 mcg/dL (65-175) L 10/11/16 10:08 % Saturation 22 % (20-55) 10/11/16 10:08 Transferrin 192 mg/dL (174-364) 10/11/16 10:08 Ferritin 221 ng/ml (22-275) 10/11/16 10:08 Vitamin B12 758 pg/mL (213-816) 10/12/16 03:50 Folate 8.2 ng/mL (7.0-31.4) 10/12/16 03:50 Stool Occult Blood Positive (Negative) A 10/16/16 23:30 Entire Visit Hgb 6.1 g/dL (12.9-16.9) L 10/18/16 04:30 Hct 19.6 % (37.5-50.1) L 10/18/16 04:30 Haptoglobin 114 mg/dL (30-200) 10/16/16 04:10 PT 13.6 Seconds (9.4-12.1) H 10/18/16 10:04 Ferritin 221 ng/ml (22-275) 10/11/16 10:08 Total Bilirubin 1.2 mg/dL (0.2-1.2) 10/11/16 10:05 AST 42 Units/L (5-34) H 10/11/16 10:05 ALT 31 Units/L (0-55) 10/11/16 10:05 Lipase 43 Units/L (8-78) 10/11/16 10:05 Folate 8.2 ng/mL (7.0-31.4) 10/12/16 03:50 - ABG ABG results: PT/INR, D-dimer PT 13.6 Seconds (9.4-12.1) H 10/18/16 10:04
[2016-10-18] MEDS: Bumetanide 1 MG TABLET PO SCH (09:37)
--- NOTE | 2016-10-18 10:02 | Internal Med Progress Note ---
Date of Encounter: 10/18/16 Time of Encounter: 10:01 - Assessment and plan (1) Infection of PEG site Current Visit: Yes Status: Acute Assessment and plan: Does not appear infected at this time. s/p PEG tube removal; Continue IV Zosyn for 3 more days; no wound cultures available. Blood cultures negative. Patient has no fever, leukocytosis or tenderness at the site. (2) Acute on chronic renal failure Current Visit: Yes Status: Acute Assessment and plan: Nephrology f/up appreciated. Patient likely has ATN and currently continues to require regular hemodialysis sessions, second session yesterday. Nephrology has discussed grave prognosis with the patient given his underlying metastatic cancer, and patient is agreeable to long-term hemodialysis if needed. Plan for PermCath placement per nephrology, after his current acute issue of anemia is taken care of. (3) Anemia Current Visit: Yes Status: Acute Assessment and plan: Acute on chronic anemia is persistent and his hemoglobin this morning is noted to be 6.1. No obvious bleeding but high suspicion for bleeding from his known esophageal cancer. Serum haptoglobin is within normal limits, reticulocyte count is noted to be slightly low and LDH is slightly elevated, inconclusive for hemolytic anemia. GI has been consulted for possible EGD, will follow-up recommendations. Plan to give 2 units PRBC along with 2 units FFP as he would have received 6 units PRBC during this hospitalization so far. Stool occult blood test positive. Continue to monitor hemoglobin, to discuss with hematology in the event of further drop. Avoid medical anticoagulation. Qualifiers: Anemia type: other cause Other causes of anemia: chronic disease, neoplastic Qualified Code(s): D63.0 - Anemia in neoplastic disease (4) Insulin dependent diabetes mellitus Current Visit: Yes Status: Chronic Assessment and plan: Continue Accu-Chek blood glucose monitoring. Basal bolus insulin regimen. Diabetic diet. (5) Atrial fibrillation Current Visit: Yes Status: Chronic Assessment and plan: Not on long-term anticoagulation due to history of GI bleed and current anemia. Qualifiers: Atrial fibrillation type: paroxysmal Qualified Code(s): I48.0 - Paroxysmal atrial fibrillation (6) CKD (chronic kidney disease) stage 4, GFR 15-29 ml/min Current Visit: Yes Status: Chronic (7) COPD (chronic obstructive pulmonary disease) Current Visit: Yes Status: Chronic Qualifiers: COPD type: unspecified COPD Qualified Code(s): J44.9 - Chronic obstructive pulmonary disease, unspecified (8) Esophageal adenocarcinoma Current Visit: Yes Status: Chronic Assessment and plan: Follows with oncology as outpatient, receives alternate week chemotherapy. - Subjective Interval history: Appears weak today and reports generalized weakness and fatigue. He would like to be discharged soon as he has several things to do and is tired of being in the hospital. Explained in detail regarding his current condition and his plan of care, verbalized understanding. No nausea, vomiting, hematemesis, hematochezia or melena reported. No abdominal pain. - Constitutional Vitals: Temp Pulse Resp BP Pulse Ox 98.7 F 84 16 100/63 99 10/18/16 07:04 10/18/16 07:04 10/18/16 07:04 10/18/16 07:04 10/18/16 07:53 General appearance: Present: A&O X 3 (Appears weak), obese, answers questions appropriately - Respiratory Respiratory exam: Present: CTAB. Absent: accessory muscle use, rales, rhonchi, wheezes Additional comments: Right IJ temporary hemodialysis catheter in place - Cardiovascular Cardiovascular exam: Present: RRR, +S1, +S2. Absent: diastolic murmur, gallop, rubs, systolic murmur - GI/Abdominal GI/Abdominal exam: Present: normal bowel sounds, soft, no peritoneal signs. Absent: distended, tenderness - Extremities Exam Extremities exam: Present: full ROM, pedal edema, warm, radial pulses palpable and symetrical. Absent: calf tenderness, cyanotic Internal Medicine: Result - Labs CBC & Chem 7: 10/18/16 04:30 10/18/16 04:30 Labs: Short CBC 10/17/16 10/18/16 Range/Units 10:00 04:30 WBC 4.4 3.4 L (4.3-11.1) K/mcL Hgb 6.6 L 6.1 L (12.9-16.9) g/dL Hct 20.3 L 19.6 L (37.5-50.1) % Plt Count 60 L 65 L (140-400) K/mcL Neutrophils # 3.8 2.5 (1.6-8.9) K/mcL BMP 10/18/16 04:30 Sodium 136 Potassium 3.8 Chloride 102 Carbon Dioxide 27 BUN 30 H D Creatinine 3.19 H Glucose 99 Calcium 7.5 L - VTE Documentation of Mechanical Device: Graduated compression elastic hosiery Consult Discharge Plan - Plan Referrals: Jeffy Guerra MD [Primary Care Provider] - 10/23/16 10:00 am
[2016-10-18 10:16] LABS: INR 1.3; Prothrombin Time 13.6 Seconds (9.4-12.1)
[2016-10-18 10:19] LABS: Activated Partial Thrombo Time 34.9 Seconds (26.0-36.0)
[2016-10-18] MEDS ORDERED: 0.9 % Sodium Chloride 250 ML ONE ×2 (10:50→14:36)
[2016-10-18] MEDS ORDERED: *HR* Midazolam HCl 5 MG/5 ML VIAL IVP ONE (16:41)
[2016-10-18] MEDS ORDERED: *HR* FentaNYL (PF) 100 MCG/2 ML VIAL ONE (16:41)
[2016-10-18] MEDS ORDERED: 0.9 % Sodium Chloride 1,000 ML IVC SCH (17:00)
[2016-10-18] MEDS ORDERED: *HR* Midazolam HCl 5 MG/5 ML VIAL IVP PRN (17:02)
[2016-10-18] MEDS ORDERED: *HR* FentaNYL (PF) 100 MCG/2 ML VIAL IVP PRN (17:02)
[2016-10-18] MEDS ORDERED: Tetracaine/Benzocaine/Butamben 200MG/SPRAY (100SPY/BOT) MM ONE (17:02)
--- NOTE | 2016-10-18 17:02 | Pre-Sedation Evaluation ---
Pre-sedation evaluation - Pre-sedation checklist Date of procedure: 10/18/16 Procedure: egd Recent Vitals: Last Vital Signs Temp 99.0 F 10/18/16 16:52 Pulse 92 10/18/16 17:01 Resp 18 10/18/16 17:01 BP 123/70 10/18/16 17:01 Pulse Ox 96 10/18/16 17:01 H&P (including ROS) documented in medical record: Yes Previous reaction to sedatives/anesthetics: No Dietary Status: NPO after Midnight Dentition: dentures removed ASA Classification *see protocol: CLASS III-Severe systemic disease Plan of Care: Pt appropriate candidate for procedure/moderate/conscious sedation , Risks/benefits of procedure/sedation discussed w/ patient/family
[2016-10-18] MEDS: *HR* OxyCODONE Immed Rel 5 MG TABLET PO PRN (18:19)
[2016-10-18] MEDS ORDERED: 0.9 % Sodium Chloride 500 ML ONE (19:24)
[2016-10-18] MEDS: Insulin DETEMIR 100 UNIT/ML X5UNITS SQ SCH (21:08)
[2016-10-19] MEDS: Piperacillin/Tazobactam 3.375 GM in D5% in Water (Mini-Bag+) 100 ML IVPB SCH ×2 (03:19→15:44)
[2016-10-19] MEDS: *HR* OxyCODONE Immed Rel 5 MG TABLET PO PRN ×3 (04:30→22:05)
[2016-10-19 04:36] LABS: Basophils % 0.3 %
[2016-10-19 04:37] LABS: Eosinophils % 0.3 %; Hematocrit 23.9 % (37.5-50.1); Hemoglobin 7.7 g/dL (12.9-16.9); Immature Granulocytes % 1.6 % (0-4); Immature Platelets 7.3 % (1.1-6.1); Lymphocytes # 0.2 K/mcL (0.6-4.6); Lymphocytes % 5.5 %; Mean Corpuscular HGB Conc 32.2 g/dL (31.6-35.5); Mean Corpuscular Hemoglobin 28.7 pg (28.0-33.3); Mean Corpuscular Volume 89.2 fL (83.0-100.0); Mean Platelet Volume 11.8 fL (9.4-12.4); Monocytes # 0.8 K/mcL (0.0-1.3); Monocytes % 20.4 %; Nucleated Red Blood Cells 3.4 /100 WBC (0); Red Blood Count 2.68 M/mcL (4.19-5.50); Red Cell Distribution Width 18.3 % (11.5-14.5); Segmented Neutrophils % 71.9 %
[2016-10-19 04:42] LABS: INR 1.2
[2016-10-19 04:44] LABS: Calcium 7.8 mg/dL (8.6-10.8); Neutrophils # 2.7 K/mcL (1.6-8.9); Platelet Count 68 K/mcL (140-400)
[2016-10-19 05:12] LABS: Hypochromasia Present (Not Present); Platelet Estimate Normal (Normal); Polychromasia 1+ (Not Present)
[2016-10-19 05:13] LABS: Anisocytosis 1+ (Not Present)
[2016-10-19] MEDS: Insulin LISPRO 300 UNITS/3 ML VIAL SQ SCH ×7 (07:40→22:06)
[2016-10-19] MEDS: Sennosides/Docusate Sodium TABLET PO SCH ×2 (07:54→21:57)
[2016-10-19] MEDS: Sucralfate 1 GM TABLET PO SCH (09:44)
--- NOTE | 2016-10-19 10:20 | Nephrology Progress Note ---
Date of Encounter: 10/19/16 Time of Encounter: 10:18 - Assessment and Plan (1) Anemia Current Visit: Yes Status: Acute secondary to bleeding gastric ulcer. S/p cauterization by Dr. Vences 10/18/16. Management per Dr. Vences and primary team. Qualifiers: Anemia type: other cause Other causes of anemia: chronic disease, neoplastic Qualified Code(s): D63.0 - Anemia in neoplastic disease (2) Acute on chronic kidney failure Current Visit: No Status: Acute Patient now on dialysis. Awaiting tunneled catheter. dialysis today. He will need an outpatient dialysis chair. Patient is now ESRD. (3) Diabetes mellitus Current Visit: No Status: Chronic Per primary team. 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 Carranza was seen and evaluated. He has no new complaints. He had his EGD last night and a bleeding ulcer was cauterized. He is eager to return home. Objective - Vital Signs Vital signs: Vital Signs Temp Pulse Resp BP Pulse Ox 10/19/16 07:22 97.6 F 88 16 93/54 94 L 10/19/16 04:20 97.7 F 89 18 95/56 94 L 10/18/16 23:32 98.6 F 85 18 111/66 95 10/18/16 22:13 98.3 F 86 20 102/65 95 10/18/16 21:56 97.7 F 84 18 105/63 94 L 10/18/16 21:23 97.8 F 77 18 104/64 96 10/18/16 19:52 97.9 F 87 16 106/60 93 L 10/18/16 19:37 98.2 F 94 16 103/59 93 L 10/18/16 18:39 98.8 F 94 18 109/65 94 L 10/18/16 17:43 98.2 F 90 16 104/65 92 L 10/18/16 17:16 87 16 118/56 96 10/18/16 17:11 91 16 128/61 96 10/18/16 17:06 85 16 122/61 98 10/18/16 17:01 92 18 123/70 96 10/18/16 16:52 99.0 F 88 18 107/58 94 L 10/18/16 15:07 98 F 90 18 94/58 95 10/18/16 14:52 98.1 F 80 18 114/68 96 10/18/16 14:26 98.1 F 80 18 114/68 96 10/18/16 11:32 98 F 81 16 100/60 10/18/16 11:17 97.8 F 83 16 102/68 96 10/18/16 11:03 98.2 F 81 16 103/61 98 Intake and Output 10/18/16 10/19/16 10/19/16 23:59 07:59 15:59 Intake Total 2119 / 2119 100 / 100 Balance 2119 / 2119 100 / 100 Intake: IV Fluids 500 / 500 100 / 100 0.9 % Sodium Chloride 1, 400 / 400 000 ML @ 50 mls/hr IVC . Q20H YUN Rx#:[id number] Zosyn 3.375 GM In 100 / 100 100 / 100 Dextrose 5% (Minibag+) 100 ML 100 ML @ 25 mls/hr IVPB Q12H YUN Rx#: [id number] Oral 270 / 270 0 / 0 Blood Product 1350 / 1350 Plasma Unit 500 / 500 [id number] Plasma Unit 500 / 500 [id number] Rbcs Leuko Poor As-1 350 / 350 Unit [id number] Other: Meal npo Percent of Meal Consumed 0% Weight 117.1 kg 119.4 kg Blood Glucose* 139 129 Patient Weight 10/19/16 23:59 Weight 119.4 kg - General Appearance General appearance: Present: well-developed, well-nourished EENT: Present: ATNC Neck: Present: supple Respiratory: Present: clear Cardiology: Present: regular rate, regular rhythm Gastrointestinal: Present: normoactive bowel sounds Integumentary: Present: warm and dry Neurologic: Present: alert and oriented x3 Musculoskeletal: Present: no cyanosis Psychiatric: Present: mood/affect appropriate - Lab 10/19/16 04:25 10/19/16 04:25 Most recent lab results Calcium 7.8 mg/dL (8.6-10.8) L 10/19/16 04:25 Phosphorus 2.1 mg/dL (2.3-4.7) L 10/17/16 04:40 Magnesium 1.6 mg/dL (1.6-2.6) 10/16/16 04:10 - VTE Documentation of Mechanical Device: Graduated compression elastic hosiery Consult Discharge Plan - Plan Referrals: Jeffy Guerra MD [Primary Care Provider] - 10/23/16 10:00 am
[2016-10-19] MEDS ORDERED: 0.9 % Sodium Chloride 2,000 ML ONE (11:04)
[2016-10-19] MEDS: Nicotine 14 MG PATCH.TD24 TD SCH (12:22)
[2016-10-19] MEDS ORDERED: Heparin 1,000 UNITS/500 mL NS 500 ML ONE (14:19)
[2016-10-19] MEDS ORDERED: ceFAZolin 1,000 MG in D5% in Water (Mini-Bag+) 100 ML IVPB ONE (14:28)
[2016-10-19] MEDS ORDERED: *HR* Midazolam HCl 2 MG/2 ML VIAL IV PRN (14:28)
[2016-10-19] MEDS ORDERED: *HR* FentaNYL (PF) 100 MCG/2 ML VIAL IV PRN (14:28)
[2016-10-19] MEDS ORDERED: 0.9 % Sodium Chloride 500 ML ONE (14:46)
[2016-10-19] MEDS ORDERED: *HR* Heparin 5,000 UNIT/ML VIAL ONE (15:05)
--- NOTE | 2016-10-19 15:32 | IR Procedure Note ---
Date of procedure: 10/19/16 Consent Obtained: Verbal consent, Written consent Timeout: Correct patient and procedure verified, Correct site verified, Time out performed, Skin prep completed Local anesthetic: Lidocaine 1% Indications: Renal failure Procedure Performed: Tunneled HD catheter placement Site/Technique: Left IJ HD catheter placed Results/Findings: Distal tip of catheter in RA Estimated blood loss (cc): 2 Complications: None; Tolerated procedure well Post Procedure Treatment Plan: May use HD catheter now
[2016-10-19] MEDS ORDERED: Piperacillin/Tazobactam 3.375 GM VIAL IVPB ONE (15:41)
[2016-10-19] MEDS: Bumetanide 1 MG TABLET PO SCH (15:44)
[2016-10-19] MEDS: Cholecalciferol (D-3) 1,000 UNIT TABLET PO SCH (15:44)
[2016-10-19] MEDS: *HR* LORazepam 1 MG TABLET PO PRN (15:44)
[2016-10-19] MEDS: Miconazole w/zinc oxide&karaya 92 APPL/92 GM TUBE TP SCH (16:54)
--- NOTE | 2016-10-19 17:19 | Internal Med Progress Note ---
Date of Encounter: 10/19/16 Time of Encounter: 17:17 - Assessment and plan (1) Infection of PEG site Current Visit: Yes Status: Acute Assessment and plan: Does not appear infected at this time. s/p PEG tube removal; Continue IV Zosyn for 1 more day; discontiue in a.m. no wound cultures available. Blood cultures negative. Patient has no fever, leukocytosis or tenderness at the site. (2) Acute on chronic renal failure Current Visit: Yes Status: Acute Assessment and plan: Nephrology f/up appreciated. Patient likely has ATN and currently continues to require regular hemodialysis sessions, likely end-stage renal disease at this time. Patient received left-sided IJ PermCath placement today. Also underwent hemodialysis session today. 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 Anticipate discharge tomorrow. (3) Anemia Current Visit: Yes Status: Acute Assessment and plan: Acute on chronic anemia likely due to upper GI bleed secondary to esophageal cancer/ulcer. Reviewed EGD report which shows 1.5 cm recent facial ulcer with dried blood status post argon photocoagulation. Tolerating soft diet. Continue Carafate before meals and at bedtime. Continue to monitor hemoglobin. Qualifiers: Anemia type: iron deficiency Iron deficiency anemia type: chronic blood loss Qualified Code(s): D50.0 - Iron deficiency anemia secondary to blood loss (chronic) (4) Insulin dependent diabetes mellitus Current Visit: Yes Status: Chronic Assessment and plan: Continue Accu-Chek blood glucose monitoring. Basal bolus insulin regimen. Diabetic diet. (5) Atrial fibrillation Current Visit: Yes Status: Chronic Assessment and plan: Not on long-term anticoagulation due to history of GI bleed and current anemia. Qualifiers: Atrial fibrillation type: paroxysmal Qualified Code(s): I48.0 - Paroxysmal atrial fibrillation (6) COPD (chronic obstructive pulmonary disease) Current Visit: Yes Status: Chronic Qualifiers: COPD type: unspecified COPD Qualified Code(s): J44.9 - Chronic obstructive pulmonary disease, unspecified (7) Esophageal adenocarcinoma Current Visit: Yes Status: Chronic Assessment and plan: Follows with oncology as outpatient, receives alternate week chemotherapy. Noted to have liver and lung metastases. - Subjective Interval history: Underwent hemodialysis today and also received a left-sided PermCath placement. Reports feeling tired due to having a long day. No nausea, vomiting, melena. Tolerating soft diet. No chest pain or shortness of breath. - Constitutional Vitals: Temp Pulse Resp BP Pulse Ox 98.4 F 86 16 109/64 96 10/19/16 15:50 10/19/16 15:50 10/19/16 15:50 10/19/16 15:50 10/19/16 15:50 General appearance: Present: A&O X 3, obese, answers questions appropriately - Respiratory Respiratory exam: Present: CTAB. Absent: accessory muscle use, rales, rhonchi, wheezes - Cardiovascular Cardiovascular exam: Present: irregular rhythm, +S1, +S2. Absent: diastolic murmur, gallop, rubs, systolic murmur - GI/Abdominal GI/Abdominal exam: Present: normal bowel sounds, soft, no peritoneal signs. Absent: distended, tenderness Internal Medicine: Result - Labs CBC & Chem 7: 10/19/16 04:25 10/19/16 04:25 Labs: Short CBC 10/19/16 Range/Units 04:25 WBC 3.8 L (4.3-11.1) K/mcL Hgb 7.7 L D (12.9-16.9) g/dL Hct 23.9 L (37.5-50.1) % Plt Count 68 L (140-400) K/mcL Neutrophils # 2.7 (1.6-8.9) K/mcL BMP 10/19/16 04:25 Sodium 136 Potassium 4.0 Chloride 101 Carbon Dioxide 24 BUN 44 H D Creatinine 3.99 H Glucose 112 H Calcium 7.8 L - ABG Interpretation ABG results: PT/INR, D-dimer PT 13.0 Seconds (9.4-12.1) H 10/19/16 04:25 - Impressions Impressions Guidance Needle Placement Ultrasound 10/19/16 00:00 IMPRESSION: Successful ultrasound and fluoroscopy guided tunneled hemodialysis catheter placement . The catheter is ready for immediate use. D/ / Sebastien Brooks MD / Sebastien Brooks MD Interpreting Provider: Sebastien Brooks MD Insertion Tunneled Catheter 10/19/16 00:00 IMPRESSION: Successful ultrasound and fluoroscopy guided tunneled hemodialysis catheter placement . The catheter is ready for immediate use. D/ / Sebastien Brooks MD / Sebastien Brooks MD Interpreting Provider: Sebastien Brooks MD - VTE Documentation of Mechanical Device: Graduated compression elastic hosiery Consult Discharge Plan - Plan Referrals: Jeffy Guerra MD [Primary Care Provider] - 10/23/16 10:00 am
[2016-10-19] MEDS: Insulin DETEMIR 100 UNIT/ML X5UNITS SQ SCH (22:02)
[2016-10-20] MEDS: Piperacillin/Tazobactam 3.375 GM in D5% in Water (Mini-Bag+) 100 ML IVPB SCH (03:55)
[2016-10-20 04:27] LABS: Basophils % 0.3 %
[2016-10-20 04:28] LABS: Eosinophils % 0.6 %; Hematocrit 22.7 % (37.5-50.1); Hemoglobin 7.2 g/dL (12.9-16.9); Immature Granulocytes % 1.3 % (0-4); Immature Platelets 6.5 % (1.1-6.1); Lymphocytes # 0.3 K/mcL (0.6-4.6); Lymphocytes % 9.1 %; Mean Corpuscular HGB Conc 31.7 g/dL (31.6-35.5); Mean Corpuscular Hemoglobin 28.9 pg (28.0-33.3); Mean Corpuscular Volume 91.2 fL (83.0-100.0); Mean Platelet Volume 11.8 fL (9.4-12.4); Monocytes # 0.8 K/mcL (0.0-1.3); Monocytes % 24.6 %; Nucleated Red Blood Cells 1.3 /100 WBC (0); Red Blood Count 2.49 M/mcL (4.19-5.50); Segmented Neutrophils % 64.1 %
[2016-10-20 04:50] LABS: Platelet Count 76 K/mcL (140-400)
[2016-10-20 04:53] LABS: Anisocytosis 1+ (Not Present); Basophilic Stippling 1+ (Not Present); Macrocytosis Present (Not Present); Platelet Estimate Decreased (Normal); Polychromasia 1+ (Not Present)
[2016-10-20] MEDS: Insulin LISPRO 300 UNITS/3 ML VIAL SQ SCH ×4 (08:28→11:59)
[2016-10-20] MEDS: Sennosides/Docusate Sodium TABLET PO SCH (08:30)
[2016-10-20] MEDS: Bumetanide 1 MG TABLET PO SCH (08:30)
[2016-10-20] MEDS: Cholecalciferol (D-3) 1,000 UNIT TABLET PO SCH (08:30)
[2016-10-20] MEDS: Nicotine 14 MG PATCH.TD24 TD SCH (08:33)
--- NOTE | 2016-10-20 10:38 | Nephrology Progress Note ---
Date of Encounter: 10/20/16 Time of Encounter: 10:36 - Assessment and Plan (1) Anemia Current Visit: Yes Status: Acute secondary to bleeding gastric ulcer. S/p cauterization by Dr. Vences 10/18/16. Management per Dr. Vences and primary team. Monitor for bleeding and consider transfusion prior to discharge. Qualifiers: Anemia type: iron deficiency Iron deficiency anemia type: chronic blood loss Qualified Code(s): D50.0 - Iron deficiency anemia secondary to blood loss (chronic) (2) Acute on chronic kidney failure Current Visit: No Status: Acute Patient is now ESRD. He has a left IJ tunneled catheter. He has an outpatient dialysis chair at [facility] in [place] and will dialyze on a MWF schedule with a chair time of 10am. Patient should remain on a renal diet and medications should be adjusted for renal function. Ok for discharge from a renal standpoint. (3) Diabetes mellitus Current Visit: No Status: Chronic Per primary team. Qualifiers: Diabetes mellitus type: type 2 Diabetes mellitus complication status: with kidney complications Diabetes mellitus complication detail: with chronic kidney disease Diabetes mellitus residential insulin use: with tank terminal gauger use Chronic kidney disease stage: stage 4 (severe) Qualified Code(s): E11.22 - Type 2 diabetes mellitus with diabetic chronic kidney disease; N18.4 - Chronic kidney disease, stage 4 (severe); Z79.4 - custodial (current) use of insulin Subjective Principal diagnosis: DRU on CKD Interval history: Mr. Carranza was seen and evaluated. He has no new complaints. He is eager to return home. Objective - Vital Signs Vital signs: Vital Signs Temp Pulse Resp BP Pulse Ox 10/20/16 06:24 98.1 F 77 16 108/67 94 L 10/20/16 04:36 97.8 F 81 18 124/65 97 10/20/16 00:34 97.3 F L 84 18 92/62 95 10/19/16 20:55 97.2 F L 90 18 115/67 96 10/19/16 15:50 98.4 F 86 16 109/64 96 10/19/16 15:03 89 21 112/62 95 10/19/16 14:59 85 21 138/76 96 10/19/16 14:52 87 22 120/66 96 10/19/16 13:16 99/51 10/19/16 11:45 99/53 10/19/16 11:30 100/53 10/19/16 11:29 102/56 10/19/16 10:45 103/55 Intake and Output 10/19/16 10/20/16 10/20/16 23:59 07:59 15:59 Intake Total 340 / 340 240 / 240 480 / 480 Output Total 300 / 300 Balance 40 / 40 240 / 240 480 / 480 Intake: IV Fluids 100 / 100 Zosyn 3.375 GM In 100 / 100 Dextrose 5% (Minibag+) 100 ML 100 ML @ 25 mls/hr IVPB Q12H YUN Rx#: [id number] Oral 240 / 240 240 / 240 480 / 480 Output: Urine 300 / 300 Other: Meal Dinner Breakfast Percent of Meal Consumed 100% 100% Weight 113.965 kg Blood Glucose* 131 110 Patient Weight 10/20/16 23:59 Weight 113.965 kg - General Appearance General appearance: Present: well-developed, well-nourished EENT: Present: ATNC Neck: Present: supple Respiratory: Present: clear Cardiology: Present: edema, regular rate, regular rhythm Gastrointestinal: Present: no tenderness Integumentary: Present: warm and dry Neurologic: Present: alert and oriented x3 Musculoskeletal: Present: no cyanosis Psychiatric: Present: mood/affect appropriate - Lab 10/20/16 03:57 10/19/16 04:25 Most recent lab results Calcium 7.8 mg/dL (8.6-10.8) L 10/19/16 04:25 Phosphorus 2.1 mg/dL (2.3-4.7) L 10/17/16 04:40 Magnesium 1.6 mg/dL (1.6-2.6) 10/16/16 04:10 - VTE Documentation of Mechanical Device: Graduated compression elastic hosiery Consult Discharge Plan - Plan Referrals: Jeffy Guerra MD [Primary Care Provider] - 10/23/16 10:00 am
[2016-10-20] MEDS: Miconazole w/zinc oxide&karaya 92 APPL/92 GM TUBE TP SCH (12:01)
--- NOTE | 2016-10-20 12:17 | Discharge Summary ---
Date of Encounter: 10/20/16 Time of Encounter: 12:13 - Discharge Diagnosis (1) Infection of PEG site Priority: Primary Status: Resolved (2) Anemia Priority: Primary Status: Acute Qualifiers: Anemia type: iron deficiency Iron deficiency anemia type: chronic blood loss Qualified Code(s): D50.0 - Iron deficiency anemia secondary to blood loss (chronic) (3) Insulin dependent diabetes mellitus Priority: Secondary Status: Chronic (4) Atrial fibrillation Priority: Secondary Status: Chronic Qualifiers: Atrial fibrillation type: paroxysmal Qualified Code(s): I48.0 - Paroxysmal atrial fibrillation (5) COPD (chronic obstructive pulmonary disease) Priority: Secondary Status: Chronic Qualifiers: COPD type: unspecified COPD Qualified Code(s): J44.9 - Chronic obstructive pulmonary disease, unspecified (6) Esophageal adenocarcinoma Priority: Secondary Status: Chronic (7) End stage renal disease on dialysis Priority: Primary Status: Acute - Discharge Medications Prescriptions: Carvedilol [Coreg] 12.5 mg PO BID #30 tablet Home Medications: Albuterol Sulfate [Albuterol Inhaler] 2 puff IH Q4HR PRN 05/11/15 [History] Aspirin 81 mg PO DAILY 05/11/15 [History] Atorvastatin Calcium [Lipitor] 20 mg PO HS 05/11/15 [History] Carvedilol [Coreg] 25 mg PO BID 05/11/15 [History] Insulin Glargine,Hum.rec.anlog [Lantus Solostar] 10 unit SQ HS 05/11/15 [History ] Nicotine Patch [Nicoderm] 14 mg TD DAILY patch.td24 09/22/15 [Rx] Insulin LISPRO [HumaLOG] 5 units SQ TIDWM PRN 12/04/15 [History] Bumetanide 2 mg PO DAILY 09/14/16 [History] Prochlorperazine Maleate [Compazine] 1 tab PO Q6HR #90 tablet 09/17/16 [Rx] Cholecalciferol (Vitamin D3) [Vitamin D3] 1,000 unit PO DAILY 10/11/16 [History] Docusate Sodium [Dok] 100 mg PO BID 10/11/16 [History] LORazepam [Ativan] 1 mg PO TID PRN 10/11/16 [History] Loratadine [Allergy Relief] 10 mg PO DAILY 10/11/16 [History] Magnesium Hydroxide [Milk of Magnesia] 15 ml PO Q48H 10/11/16 [History] Ondansetron HCl [Zofran] 4 mg PO Q6H 10/11/16 [History] Oxycodone HCl 5 mg PO Q8H PRN 10/11/16 [History] Spironolactone [Aldactone] 50 tab PO BID #60 tablet 10/19/16 [Rx] Carvedilol [Coreg] 12.5 mg PO BID #30 tablet 10/20/16 [Rx] Sucralfate [Carafate] 1 gm PO ACHS #120 10/20/16 [Rx] Allergies/Adverse Reactions: Allergies Sulfa (Sulfonamide Antibiotics) Allergy (Verified 10/11/16 14:04) Hives IVP DYE Allergy (Uncoded 10/11/16 14:04) See Comments Procedures/tests Complete & Pending: Procedures Performed prior 72 hours Category Date Time Status IR cvc insrt tunnel wo 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 [IR] Routine IR 10/19/16 Completed IR us guide needle place [IR] Routine IR 10/19/16 Completed Date of admission: 10/13/16 16:38 Primary care physician: Jeffy Guerra, Consults: 10/15/16 08:30 Consult to Dialysis [CONS] ONCE 10/17/16 10:15 Consult to Dialysis [CONS] ONCE 10/17/16 15:37 Consult to Gastroenterology [CONS] Routine Consulting Provider: Gastroenterology Luciana Reason for Consult: Anemia, h/o- esophageal adenocarcinoma Call Completed: Yes 10/18/16 10:36 Consult to Interventional Radiology [CONS] Routine Consulting Provider: Radiology Interventional Cols Reason for Consult: Please evaluate for a Permacath tomorrow (Saturday). Call Completed: Yes Consult to Epidemiologist [CONS] Routine Reason for SW Consult: Please evaluate for a dialysis chair. He lives in [place], [place]. If his renal function remains poor tomorrow, I would then declare him ESRD. Thank you. 10/19/16 10:00 Consult to Dialysis [CONS] ONCE Discharging clinician: Tyra Tinajero Anticipated date of discharge: 10/20/16 - Patient Status Disposition: Home, Self-Care Condition: Fair Functional capacity at discharge: independent ambulation Overall status at discharge: patient is progressing back to baseline - Discharge Instructions Instructions: Hemodialysis (DC), Chronic Obstructive Pulmonary Disease (DC) Follow Up With: Jeffy Guerra MD [Primary Care Provider] - 10/23/16 10:00 am - Diet and Activity Activity: increase activity as tolerated Diet: diabetic diet, low fat, low cholesterol, low salt diet, other (renal diet) Hospital course: Mr. Carranza is a 56 year old male with multiple medical problems including metastatic esophageal adenocarcinoma who was initially admitted with problems with PEG tube. Patient is able to have oral diet and has never used his PEG tube that was placed due to his esophageal cancer. Surgery has been consulted and PEG tube has been removed, with resultant wound being packed with tired of him strips. Mild cellulitis was noted around the tube at the time of admission and he was started on IV vancomycin and Zosyn. No wound cultures were available and blood cultures remain negative and he completed a one-week course of IV Zosyn and he requires no more antibiotics at this time. He was also noted to have worsening acute on chronic renal failure. Nephrology was consulted and patient was tentatively started on hemodialysis via a temporary dialysis catheter. However, his kidney function could not recover and he likely has end-stage renal disease at this time per nephrology. He accordingly, underwent left IJ PermCath placement and arrangements were made to continue outpatient hemodialysis. He was also noted to have acute on chronic persistent anemia, likely due to GI blood loss. He received 7 units of PRBC and 2 units of FFP's during this hospitalization for the same. GI has been consulted and patient underwent EGD that showed 1.5 cm esophageal ulcer with dried blood and underwent argon photocoagulation. He is recommended to continue Carafate before meals and at bedtime. He is currently medically stable for discharge and recommended to follow up with oncology as outpatient to discuss his further plan of care and goals of care. - Time Spent with Patient Total time spent providing and/or coordinating discharge services: Greater than 30 minutes (45 min) - Constitutional Vitals: Temp Pulse Resp BP Pulse Ox 98.2 F 78 16 106/65 96 10/20/16 10:58 10/20/16 10:58 10/20/16 10:58 10/20/16 10:58 10/20/16 10:58 General appearance: Present: A&O X 3, obese, answers questions appropriately - Respiratory Respiratory exam: Present: CTAB. Absent: accessory muscle use, rales, rhonchi, wheezes - Cardiovascular Cardiovascular exam: Present: RRR, +S1, +S2. Absent: diastolic murmur, gallop, rubs, systolic murmur - VTE Documentation of Mechanical Device: Graduated compression elastic hosiery
--- NOTE | 2016-10-20 12:25 | Physician Discharge Referral ---
Home Health/Hosp Referral Info Transfer to: Home Health Attending Provider: Tyra Tinajero Provider in Charge Post Discharge: PCP - Diagnosis (1) Infection of PEG site Priority: Primary Status: Resolved (2) Anemia Priority: Primary Status: Acute (3) Insulin dependent diabetes mellitus Priority: Secondary Status: Chronic (4) Atrial fibrillation Priority: Secondary Status: Chronic (5) COPD (chronic obstructive pulmonary disease) Priority: Secondary Status: Chronic (6) Esophageal adenocarcinoma Priority: Secondary Status: Chronic (7) End stage renal disease on dialysis Priority: Primary Status: Acute - Respiratory Orders Smoking Cessation: Smoking cessation has been advised. For more information, call the [place] Tobacco Quit Line at 1-538-SRMB-NOW. - Dressing/Wound Care Site: Abdominal wall Type of Dressing/Treatments w/Frequency: Pack with iodoform strips after cleaning with sterile water, once daily; monitor for infection/tenderness/discharge - Diet/Nutrition Diet/Nutrition Orders: Renal, Cardiac, No Concentrated Sweets (diabetic) - Activity Activity Orders: Ambulate - Services Needed Following services are medically necessary services: Nursing, Physical Therapy, Occupational Therapy - Transfer Medications Prescriptions: Carvedilol [Coreg] 12.5 mg PO BID #30 tablet Home Medications: Albuterol Sulfate [Albuterol Inhaler] 2 puff IH Q4HR PRN 05/11/15 [History] Aspirin 81 mg PO DAILY 05/11/15 [History] Atorvastatin Calcium [Lipitor] 20 mg PO HS 05/11/15 [History] Carvedilol [Coreg] 25 mg PO BID 05/11/15 [History] Insulin Glargine,Hum.rec.anlog [Lantus Solostar] 10 unit SQ HS 05/11/15 [History ] Nicotine Patch [Nicoderm] 14 mg TD DAILY patch.td24 09/22/15 [Rx] Insulin LISPRO [HumaLOG] 5 units SQ TIDWM PRN 12/04/15 [History] Bumetanide 2 mg PO DAILY 09/14/16 [History] Prochlorperazine Maleate [Compazine] 1 tab PO Q6HR #90 tablet 09/17/16 [Rx] Cholecalciferol (Vitamin D3) [Vitamin D3] 1,000 unit PO DAILY 10/11/16 [History] Docusate Sodium [Dok] 100 mg PO BID 10/11/16 [History] LORazepam [Ativan] 1 mg PO TID PRN 10/11/16 [History] Loratadine [Allergy Relief] 10 mg PO DAILY 10/11/16 [History] Magnesium Hydroxide [Milk of Magnesia] 15 ml PO Q48H 10/11/16 [History] Ondansetron HCl [Zofran] 4 mg PO Q6H 10/11/16 [History] Oxycodone HCl 5 mg PO Q8H PRN 10/11/16 [History] Spironolactone [Aldactone] 50 tab PO BID #60 tablet 10/19/16 [Rx] Carvedilol [Coreg] 12.5 mg PO BID #30 tablet 10/20/16 [Rx] Sucralfate [Carafate] 1 gm PO ACHS #120 10/20/16 [Rx] Allergies/Adverse Reactions: Allergies Sulfa (Sulfonamide Antibiotics) Allergy (Verified 10/11/16 14:04) Hives IVP DYE Allergy (Uncoded 10/11/16 14:04) See Comments Certification: Further, I certify that my clinical findings support that this patient is homebound (i.e. absences from home require considerable and taxing effort and are for medical reasons or mandaen services or infrequently or short duration when for other reasons) because: Homebound Reason: Patient requires assistance of a person or device to safely leave home, Leaving home requires considerable and taxing effort due to condition Attestation: My signature below is to certify that this patient is under my care and that I, or nurse practitioner, or a physician's curriculum assistant working with me, has a face-to -face encounter with this patient.
[2016-10-20] MEDS ORDERED: 0.9 % Sodium Chloride 500 ML ONE (13:19)
[2016-10-20] MEDS: *HR* OxyCODONE Immed Rel 5 MG TABLET PO PRN (13:34)
[2016-10-20 15:47] VITALS: BP 120/70
== END 2016-10-20 16:15 | disposition home or self-care (01) | DRG 380 ==
LOC: 2NENU 09:12 → EMEROO 09:12 → 3BNU 13:36 → 2ANU 10-12 18:18 → SUATTDRO 10-13 16:38
PROVIDERS: ADMIT Internal Medicine; ATTEND Internal Medicine
PROC: IRPERMA (2016-10-19 12:00)